=== PATIENT | female | born 1940 | race Caucasian/White ===

== ENCOUNTER 2018-01-02 15:15 | Observation (INO) ==
[2018-01-02 15:50] LABS: Basophils # 0.1 K/mm3 (0-0.2); Basophils % 0.9 % (0.1-2.0); Eosinophils # 0.4 K/mm3 (0.0-0.4); Eosinophils % 3.3 % (0.1-12.0); Hemoglobin 13.7 g/dL (12.2-16.2); Lymphocytes # 3.7 K/mm3 (0.7-4.5); Lymphocytes % 33.7 K/mm3 (10-50); Mean Corpuscular HGB Conc 33.5 g/dL (31.8-35.4); Mean Corpuscular Hemoglobin 28.1 pg (27.0-31.2); Mean Corpuscular Volume 83.7 fl (81-99); Mean Platelet Volume 7.3 fl (7.4-10.4); Monocytes # 0.7 K/mm3 (0.1-1.0); Monocytes % 5.9 % (1.7-9.3); Neutrophils # 6.1 K/mm3 (1.8-7.8); Neutrophils % 56.2 % (37.0-80.0); Platelet Count 278 K/mm3 (142-424); Red Blood Count 4.89 M/mm3 (4.20-5.40); Red Cell Distribution Width 13.1 % (11.5-17.5); White Blood Count 10.9 K/mm3 (4.8-10.8)
[2018-01-02 16:04] LABS: Anion Gap 14.7 mEq/L (5-15); Blood Urea Nitrogen 13 mg/dL (7-18); Calcium 8.5 mg/dL (8.5-10.1); Carbon Dioxide 25 mmol/L (21.0-32.0); Chloride 106 mmol/L (98-107); Glucose 107 mg/dL (74-106); Potassium 3.7 mmoL/L (3.5-5.1); Sodium 142 mmol/L (136-145)
--- NOTE | 2018-01-02 17:37 | Emergency Department Note ---
ED Disposition Clinical Impression: Chest pain Qualifiers: Chest pain type: precordial pain Qualified Code(s): R07.2 - Precordial pain Disposition: Admitted as Observation Condition on Discharge: Good - Critical Care Critical Care Time: No Attestation: On 01/02/18, the high probability of a clinically significant, sudden or life threatening deterioration of the following system(s) required my full and direct attention, intervention and personal management. The time I documented below is in addition to time spent performing reported procedures but includes the following listed in this critical care notation. Medical Decision Making - Medical Records Medical records reviewed: Yes: I reviewed the patient's medical records. - Rohan Inquiry Pt receiving controlled substance: No Vital Signs: 01/02/18 15:15 01/02/18 15:24 01/02/18 15:55 Temperature 97.7 F Temperature Source Oral Pulse Rate [Left Radial] 82 67 78 Respiratory Rate 20 Blood Pressure [Right Arm] 133/55 113/78 120/68 Blood Pressure Mean [Right Arm] 81 89 85 Blood Pressure Source [Right Arm] Manual Cuff/ Doppler Automatic Cuff Blood Pressure Position [Right Arm] Sitting Sitting 02 Sat by Pulse Oximetry 97 95 94 L Oxygen Delivery Method Room Air 01/02/18 16:39 Temperature Temperature Source Pulse Rate [Left Radial] 79 Respiratory Rate Blood Pressure [Right Arm] 97/81 Blood Pressure Mean [Right Arm] 86 Blood Pressure Source [Right Arm] Automatic Cuff Blood Pressure Position [Right Arm] Sitting 02 Sat by Pulse Oximetry 95 Oxygen Delivery Method - Lab Data Lab results reviewed: Yes: I reviewed the patient's lab results. Lab Results 01/02/18 15:40: WBC 10.9 H, RBC 4.89, Hgb 13.7, Hct 41.0, MCV 83.7, MCH 28.1, MCHC 33.5, RDW 13.1, Plt Count 278, MPV 7.3 L, Neut % (Auto) 56.2, Lymph % (Auto) 33.7, [place] % (Auto) 5.9, Eos % (Auto) 3.3, Baso % (Auto) 0.9, Neut # (Auto) 6.1, Lymph # (Auto) 3.7, [place] # (Auto) 0.7, Eos # (Auto) 0.4, Baso # (Auto) 0.1 01/02/18 15:40: Sodium 142, Potassium 3.7, Chloride 106, Carbon Dioxide 25, Anion Gap 14.7, BUN 13, Creatinine 0.98, Estimated Creat Clear 64, Estimated GFR 55 L, Est GFR ( Amer) 67, Glucose 107 H, Calcium 8.5, Troponin I < 0.02 Result diagrams: 01/02/18 15:40 01/02/18 15:40 Orders (Tests/Meds): ED MEDICATIONS Discontinued Medications Generic Name Dose Route Start Last Admin Trade Name Freq PRN Reason Stop Dose Admin Acetaminophen 1,000 mg 01/02/18 17:06 01/02/18 17:08 Tylenol 500mg Tablet PO 01/02/18 17:07 1,000 mg ONCE ONE Administration Nitroglycerin 1 gm 01/02/18 15:26 01/02/18 15:28 Nitroglycerin 1 Inch Oint Udp TD 01/02/18 15:27 1 gm ONCE ONE Administration ORDERS Category Date Time Status XR chest portable Stat Exams 01/02/18 15:21 Taken ECG Request by /Nse Stat Y 01/02/18 15:21 Stop Req - Radiology Data #1 Image(s): Chest Image Reviewed: Yes I reviewed the patient's radiology image Preliminary Findings: Normal/NAD - ECG Data Tracing #1 I reviewed this ECG and interpreted as documented below: Normal Sinus Rhythm: Yes Ischemic changes: non-specific ST-T wave changes Conduction abnormalities present: RBBB ECG compared to prior tracings: this ECG reveals significant changes Tracing #2 I reviewed this ECG and interpreted as documented below: Normal Sinus Rhythm: Yes Ischemic changes: non-specific ST-T wave changes Conduction abnormalities present: RBBB - Physician Consults Physician Consulted: yann Reason -: Admission Chest Pain HPI - General Chief Complaint: Chest Pain Stated Complaint: Chest pain Time Seen by Provider: 01/02/18 15:30 Mode of Arrival: Ambulatory Source of Information: Patient, Relative, Medical Record Limitations: No Limitations Description of Symptoms (Recalled from ER Triage Doc. by RN): Pt states that she has had chest tightness off and on for the past 2 weeks up until a couple of days it increased, she states that she feels the chest tightness is due to her worrying over her left arm pain. Some nausea and cold sweats the past couple of days. 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 to take 325 of aspirin prior to arrival to the ER - History of Present Illness HPI narrative: pt with chest tightness which has been occurring over the last 2 days with rad to lt upper ext MD complaint: chest pain indicative of cardiac Onset (ago): day(s) Duration: intermittent Activity at onset: during rest Pain location: left chest Severity: moderate Quality: tightness Pain radiation: LUE Risk Factors for CAD: Hypertension, Hypercholesterolemia, Family Hx of CAD, Diabetes Treatments prior to or on arrival for Cardiac Chest Pain: aspirin - IGLESIA Score Non-Stemi Age of patient: 65 yrs or more Number of risk factors for CAD: Presence of 3 or more Prior coronary artery stenosis(seen in coronary angiography): Less than 50% ST-Segment deviation on ECG (more than 1 min): Absent Prior aspirin intake: ASA intake in the last 7 days Severe anginal chest pain: Two or more episodes in last 24 hours Elevated cardiac markers(CK-MB or troponin): Absent Non-Stemi Risk Score: 4 - Related Data On Oral Contraceptives: No Home Medications Medication Instructions Recorded Confirmed Glimepiride 1 mg PO DAILY 01/02/18 01/02/18 Levothyroxine Sodium 112 mcg PO DAILY 01/02/18 01/02/18 [Levothyroxine 112mcg (0.112mg) Tab] Lisinopril [Lisinopril 10mg Tab] 10 mg PO DAILY 01/02/18 01/02/18 Allergies Allergy/AdvReac Type Severity Reaction Status Date / Time No Known Allergies Allergy Unknown Uncoded 04/19/17 14:34 [facility] History I have reviewed the patient's past medical history: Yes Medical History: Reports:: Diabetes Mellitus Type 2 Denies:: Diabetes Mellitus Type 1 - Social History Smoking Status: Never smoker Alcohol Intake: never - Psychiatric History Expresses thoughts of harming self/others: None Suicide Plan Description: No Plan ROS Obtained: Yes All systems reviewed & no additional complaints - Constitutional Constitutional: Denies fever(s) - Eyes Eyes: Denies change in vision - ENT Ears, Nose, Mouth, and Throat: Denies sore throat - Cardiovascular Cardiovascular: Reports chest pain - Respiratory Respiratory: No cough - Gastrointestinal Gastrointestingal: Denies: abdominal pain - Genitourinary Male Genitourinary: Reports hematuria Female Genitourinary: Denies hematuria - Musculoskeletal Musculoskeletal: Denies back pain - Integumentary/Breasts Skin/Breast: Denies rash - Neurologic Neurologic: Denies seizure-like activity Physical Exam - General General appearance: in no apparent distress - Head Head exam: normocephalic - Eye Eye exam: Present: PERRL, EOMI - ENT ENT exam: Present: mucous membranes moist - Neck Neck exam: Present: normal inspection - Respiratory Respiratory exam: Present: normal lung sounds bilaterally. Absent: respiratory distress - Cardiovascular Cardiovascular exam: Present: regular rate, systolic murmur, +S4 - Abdominal Exam Abdominal exam: Present: soft - Extremities Exam Extremities exam: Absent: calf tenderness - Neurological Exam Neurological exam: Present: alert, oriented X3, CN II-XII intact - Psychiatric Psychiatric exam: Present: normal affect - Skin Skin exam: Absent: rash
[2018-01-03 06:38] LABS: Basophils # 0.1 K/mm3 (0-0.2); Basophils % 0.7 % (0.1-2.0); Eosinophils # 0.3 K/mm3 (0.0-0.4); Hemoglobin 12.6 g/dL (12.2-16.2); Lymphocytes # 3.8 K/mm3 (0.7-4.5); Mean Corpuscular HGB Conc 36.1 g/dL (31.8-35.4); Mean Corpuscular Hemoglobin 30.8 pg (27.0-31.2); Mean Corpuscular Volume 85.2 fl (81-99); Mean Platelet Volume 7.5 fl (7.4-10.4); Monocytes # 0.5 K/mm3 (0.1-1.0); Monocytes % 5.1 % (1.7-9.3); Neutrophils # 5.2 K/mm3 (1.8-7.8); Neutrophils % 52.3 % (37.0-80.0); Platelet Count 228 K/mm3 (142-424); Red Blood Count 4.11 M/mm3 (4.20-5.40); Red Cell Distribution Width 13.3 % (11.5-17.5); White Blood Count 9.9 K/mm3 (4.8-10.8)
[2018-01-03 06:52] LABS: Anion Gap 11.8 mEq/L (5-15); Calcium 8.2 mg/dL (8.5-10.1); Potassium 3.8 mmoL/L (3.5-5.1)
--- NOTE | 2018-01-03 07:20 | History & Physical Report ---
*Admission Date: 01/02/18 *Chief complaint: Chest tightness *History of present illness: 77-year-old female with hypertension, diabetes presented to the emergency department after onset of retrosternal chest tightness with an aching pain in the left forearm, diaphoresis, mild shortness of breath. Symptoms occurred after patient had been walking outside and fed her dog. Patient tried to sit and rest but when chest tightness did not go away she contacted the on-call physician. She was instructed to come to the emergency department. Patient came to the emergency department and underwent evaluation. She admits her chest pain had decreased by the time she arrived to the emergency department. Being given nitroglycerin "may have helped". Her chest tightness did not go away until some point overnight. This morning she is chest pain-free and believes she may have just panicked. He is a non-smoker. Patient has a personal history of left-sided cervical radiculopathy but states the pain in the left forearm is different than her usual radicular pain. [facility] History I have reviewed the patient's past medical history: Yes Medical History: Reports:: Diabetes Mellitus Type 2, Hypertension Denies:: Cancer, Diabetes Mellitus Type 1, Internal Pacemaker, MRSA Other Surgeries: No: Pacemaker Amputation: No - *Social History Educational Level: Completed [employer] Smoking Status: Never smoker Alcohol Intake: never Occupational Status: retired Housing: house Household Members: family - Psychiatric History Expresses thoughts of harming self/others: None Suicide Plan Description: No Plan Review of Systems - Review of Systems Review of systems:: pertinent systems reviewed and negative unless documented below - Constitutional Denies body ache(s), Denies chills - *Cardiovascular Reports chest pain, Reports chest pain at rest - *Respiratory Reports shortness of breath, Denies change in phlegm color, Denies cough - *Gastrointestinal Denies abdominal pain, Denies belching, Denies bloating - *Neurologic Denies seizure-like activity Meds Home Medications Medication Instructions Recorded Confirmed Type Glimepiride 1 mg PO DAILY 01/02/18 01/02/18 History Levothyroxine Sodium 112 mcg PO DAILY 01/02/18 01/02/18 History [Levothyroxine 112mcg (0.112mg) Tab] Lisinopril [Lisinopril 10mg Tab] 10 mg PO DAILY 01/02/18 01/02/18 History Allergies Allergy/AdvReac Type Severity Reaction Status Date / Time No Known Allergies Allergy Unknown Uncoded 04/19/17 14:34 Exam Vital signs and Labs for Last 24 Hours: Temp Pulse Resp BP Pulse Ox 98.4 F 66 18 154/68 99 01/03/18 04:00 01/03/18 04:00 01/03/18 04:00 01/03/18 04:00 01/03/18 04:00 Laboratory Results - last 24 hr 01/02/18 15:40: WBC 10.9 H, RBC 4.89, Hgb 13.7, Hct 41.0, MCV 83.7, MCH 28.1, MCHC 33.5, RDW 13.1, Plt Count 278, MPV 7.3 L, Neut % (Auto) 56.2, Lymph % (Auto) 33.7, [place] % (Auto) 5.9, Eos % (Auto) 3.3, Baso % (Auto) 0.9, Neut # (Auto) 6.1, Lymph # (Auto) 3.7, [place] # (Auto) 0.7, Eos # (Auto) 0.4, Baso # (Auto) 0.1 01/02/18 15:40: Sodium 142, Potassium 3.7, Chloride 106, Carbon Dioxide 25, Anion Gap 14.7, BUN 13, Creatinine 0.98, Estimated Creat Clear 64, Estimated GFR 55 L, Est GFR ( Amer) 67, Glucose 107 H, Calcium 8.5, Troponin I < 0.02 01/02/18 19:11: Troponin I < 0.02 01/02/18 20:10: POC Glucose 132 H 01/02/18 21:43: Troponin I < 0.02 01/03/18 06:01: WBC 9.9, RBC 4.11 L, Hgb 12.6, Hct 35.0 L, MCV 85.2, MCH 30.8, MCHC 36.1 H, RDW 13.3, Plt Count 228, MPV 7.5, Neut % (Auto) 52.3, Lymph % (Auto) 39.0, [place] % (Auto) 5.1, Eos % (Auto) 3.0, Baso % (Auto) 0.7, Neut # (Auto) 5.2, Lymph # (Auto) 3.8, [place] # (Auto) 0.5, Eos # (Auto) 0.3, Baso # (Auto) 0.1 01/03/18 06:01: Sodium 144, Potassium 3.8, Chloride 109 H, Carbon Dioxide 27, Anion Gap 11.8, Creatinine 0.80, Estimated Creat Clear 62, Estimated GFR 70, Est GFR ( Amer) 84 D, Glucose 97, Calcium 8.2 L, Magnesium 1.8 01/03/18 06:03: POC Glucose 92 I & O for Last 24 hours: Intake & Output 12/31/17 01/01/18 01/02/18 01/03/18 11:59 11:59 11:59 11:59 Intake Total 528 / 528 Balance 528 / 528 Weight 182 lb 6 oz Narrative: She is awake and alert in no distress. HEENT exam is grossly normal. Neck is without carotid bruits. Lungs are clear to auscultation bilaterally. Heart has a regular rate and rhythm. Abdomen is soft, nontender, nondistended. Extremities have no pedal edema Assessment and Plan (1) Hypertension Current visit: Yes Status: Acute Category: Medical Code(s): I10 - Essential (primary) hypertension (2) Diabetes mellitus Current visit: Yes Status: Acute Category: Medical Code(s): E11.9 - Type 2 diabetes mellitus without complications (3) Non-smoker Current visit: Yes Status: Acute Category: Social Hx Code(s): Z78.9 - Other specified health status (4) Chest pain Current visit: Yes Status: Acute Qualifiers: Chest pain type: precordial pain Qualified Code(s): R07.2 - Precordial pain Category: Medical Code(s): R07.9 - Chest pain, unspecified - Assessment and plan all Dx Assessment and Plan for all problems:: Patient is ruled out for KS overnight with serial negative troponins. Will await cardiology evaluation of patient's new onset angina
--- NOTE | 2018-01-03 07:24 | Pharmacy Consult Notes ---
[facility] Pharmacy VTE Monitoring - Patient Demographics Admission date: 01/02/18 Report Date: 01/03/18 Time: 07:24 Allergies/Adverse Reactions: Patient Allergies No Known Allergies Allergy (Unverified 01/03/18 07:18) Height: 1.55 m Weight: 82.724 kg Patient Problems: Current Active Problems Chest pain (Acute) Hypertension (Acute) Diabetes mellitus (Acute) Non-smoker (Acute) - VTE Risk Labs: VTE Related Lab Results Hgb 12.6 g/dL (12.2-16.2) 01/03/18 06:01 Hct 35.0 % (37.0-47.0) L 01/03/18 06:01 Plt Count 228 K/mm3 (142-424) 01/03/18 06:01 BUN 13 mg/dL (7-18) 01/02/18 15:40 Creatinine 0.80 mg/dL (0.55-1.02) 01/03/18 06:01 Estimated Creat Clear 62 mL/min (0-300) 01/03/18 06:01 Was VTE Risk Assessment Performed: No VTE Score: 1 VTE Risk Level: Very Low Risk - Prophylaxis VTE Prophylaxis Ordered?: Yes Types of VTE Prophylaxis: TEDS Knee High Location of Applied Device: Bilateral Lower Extremeties - VTE Diagnosis Confirmed Treatment or plan recommended: Continue Current Treatment
--- NOTE | 2018-01-03 08:03 | Consult Report ---
History of Present Illness Consult date: 01/03/18 Requesting physician: Christian Villar Consult reason: chest pain Chief complaint: chest pain Additional Medical History:: 1. Hypertension, treated for many years 2. History of hyperthyroidism, status post iodine-131 therapy now on chronic replacement therapy 3. Diabetes mellitus, diagnosed and treated about 6 months 4. Strong family history for cancer History of present illness: 77-year-old female with hypertension, diabetes presented to the emergency department after onset of retrosternal chest tightness with an aching pain in the left forearm, diaphoresis, mild shortness of breath. Symptoms occurred after patient had been walking outside and fed her dog. Patient tried to sit and rest but when chest tightness did not go away she contacted the on-call ysician. She was instructed to come to the emergency department. Patient came to the emergency department and underwent evaluation. She admits her chest pain had decreased by the time she arrived to the emergency department. Being given nitroglycerin "may have helped". Her chest tightness did not go away until some point overnight. This morning she is chest pain-free and believes she may have just panicked. He is a non-smoker. Patient has a personal history of left- sided cervical radiculopathy but states the pain in the left forearm is different than her usual radicular pain. The above per Dr. Villar Patient does relate a recent episode of lightheadedness/dizziness while at the grocery store which resolved spontaneously after a few minutes. She states that she had not been holding onto her heart she might have fallen. Patient's EKG is sinus rhythm with right bundle branch block. She denies any history of myocardial infarction or syncope. Cardiology consulted for evaluation recommendations. [facility] History Medical History: Reports:: Diabetes Mellitus Type 2, Hypertension Denies:: Cancer, Diabetes Mellitus Type 1, Internal Pacemaker, MRSA Other Surgeries: No: Pacemaker Amputation: No - *Social History Educational Level: Completed [employer] Smoking Status: Never smoker Alcohol Intake: never Occupational Status: retired Housing: house Household Members: family - Psychiatric History Expresses thoughts of harming self/others: None Suicide Plan Description: No Plan Meds Home Medications Medication Instructions Recorded Confirmed Type Glimepiride 1 mg PO DAILY 01/02/18 01/02/18 History Levothyroxine Sodium 112 mcg PO DAILY 01/02/18 01/02/18 History [Levothyroxine 112mcg (0.112mg) Tab] Lisinopril [Lisinopril 10mg Tab] 10 mg PO DAILY 01/02/18 01/02/18 History Allergies Allergy/AdvReac Type Severity Reaction Status Date / Time No Known Allergies Allergy Unverified 01/03/18 07:18 Review of Systems - *Cardiovascular Reports chest pain, Reports shortness of breath with activity, Reports lightheadedness - *Respiratory Reports shortness of breath with activity - *Gastrointestinal Reports abdominal pain - *Genitourinary Denies blood in urine - *Musculoskeletal Reports back pain - *Neurologic Denies seizure-like activity Exam Vital signs and Labs for Last 24 Hours: Temp Pulse Resp BP Pulse Ox 98.1 F 60 18 131/59 95 01/03/18 07:59 01/03/18 07:59 01/03/18 07:59 01/03/18 07:59 01/03/18 07:59 Laboratory Results - last 24 hr 01/02/18 15:40: WBC 10.9 H, RBC 4.89, Hgb 13.7, Hct 41.0, MCV 83.7, MCH 28.1, MCHC 33.5, RDW 13.1, Plt Count 278, MPV 7.3 L, Neut % (Auto) 56.2, Lymph % (Auto) 33.7, [place] % (Auto) 5.9, Eos % (Auto) 3.3, Baso % (Auto) 0.9, Neut # (Auto) 6.1, Lymph # (Auto) 3.7, [place] # (Auto) 0.7, Eos # (Auto) 0.4, Baso # (Auto) 0.1 01/02/18 15:40: Sodium 142, Potassium 3.7, Chloride 106, Carbon Dioxide 25, Ani on Gap 14.7, BUN 13, Creatinine 0.98, Estimated Creat Clear 64, Estimated GFR 55 L, Est GFR ( Amer) 67, Glucose 107 H, Calcium 8.5, Troponin I < 0.02 01/02/18 19:11: Troponin I < 0.02 01/02/18 20:10: POC Glucose 132 H 01/02/18 21:43: Troponin I < 0.02 01/03/18 06:01: WBC 9.9, RBC 4.11 L, Hgb 12.6, Hct 35.0 L, MCV 85.2, MCH 30.8, MCHC 36.1 H, RDW 13.3, Plt Count 228, MPV 7.5, Neut % (Auto) 52.3, Lymph % (Auto) 39.0, [place] % (Auto) 5.1, Eos % (Auto) 3.0, Baso % (Auto) 0.7, Neut # (Auto) 5.2, Lymph # (Auto) 3.8, [place] # (Auto) 0.5, Eos # (Auto) 0.3, Baso # (Auto) 0.1 01/03/18 06:01: Sodium 144, Potassium 3.8, Chloride 109 H, Carbon Dioxide 27, Anion Gap 11.8, BUN 11, Creatinine 0.80, Estimated Creat Clear 62, Estimated GFR 70, Est GFR ( Amer) 84 D, Glucose 97, Calcium 8.2 L, Magnesium 1.8 01/03/18 06:03: POC Glucose 92 I & O for Last 24 hours: Intake & Output 12/31/17 01/01/18 01/02/18 01/03/18 11:59 11:59 11:59 11:59 Intake Total 528 / 528 Balance 528 / 528 Weight 182 lb 6 oz - *Routine Neck Exam Present: supple. Absent: lymphadenopathy - *Routine Respiratory Exam Present: CTA bilaterally. Absent: rales, rhonchi, wheezes - *Routine Cardiovascular Exam Present: RRR. Absent: murmur, gallop, rubs - *Routine Abdominal Exam Present: soft, normoactive bowel sounds, tenderness Comments: Reproducible tenderness in the epigastric area with palpation. - *Routine Extremities Exam Absent: cyanosis, clubbing, edema - *Routine Neurological Exam Present: alert, oriented X3, moving all extremities Assessment and Plan (1) Unstable angina pectoris Current visit: Yes Status: Acute Category: Medical Code(s): I20.0 - Unstable angina (2) Hypertension Current visit: Yes Status: Acute Category: Medical Code(s): I10 - Essential (primary) hypertension (3) Diabetes mellitus Current visit: Yes Status: Acute Category: Medical Code(s): E11.9 - Type 2 diabetes mellitus without complications (4) Non-smoker Current visit: Yes Status: Acute Category: Social Hx Code(s): Z78.9 - Other specified health status (5) Right bundle branch block (RBBB) determined by electrocardiography Current visit: Yes Status: Acute Category: Medical Code(s): I45.10 - Unspecified right bundle-branch block - Assessment and plan all Dx Assessment and Plan for all problems:: 1. Chest pain consistent with unstable angina pectoris patient with IGLESIA score of 3 (age, cardiac risk factors, recurrent chest pain). Recommend proceeding with left heart catheterization. Risks, benefits and procedure explained to the patient she agrees to proceed. 2. Echocardiogram has been ordered. 3. Further recommendations to follow pending above results. 4. Continue to monitor telemetry for arrhythmias.
--- NOTE | 2018-01-03 14:38 | Discharge Summary ---
General - General Admission date:: 01/02/18 Discharge date: 01/03/18 HPI HPI: 77-year-old female with hypertension, diabetes presented to the emergency department after onset of retrosternal chest tightness with an aching pain in the left forearm, diaphoresis, mild shortness of breath. Symptoms occurred after patient had been walking outside and fed her dog. Patient tried to sit and rest but when chest tightness did not go away she contacted the on-call physician. She was instructed to come to the emergency department. Patient came to the emergency department and underwent evaluation. She admits her chest pain had decreased by the time she arrived to the emergency department. Being given nitroglycerin "may have helped". Her chest tightness did not go away until some point overnight. This morning she is chest pain-free and believes s he may have just panicked. He is a non-smoker. Patient has a personal history of left-sided cervical radiculopathy but states the pain in the left forearm is different than her usual radicular pain. Hospital Course Hospital Course: Patient ruled out for CT with serial troponins. Cardiology was consulted and patient was taken to laboratory apparatus glass grinder over unstable angina. Left Heart Catheterization was negative for any obstructive CAD. Post procedurally there were some complications as there was difficulty getting the patient to stop bleeding from the radial artery catheter site. Ultimately late into the night patient's bleeding stopped. She was discharged home the following morning on January 04. Objective Vital signs: Temp Pulse Resp BP Pulse Ox 97.8 F 65 18 117/68 93 L 01/03/18 11:16 01/03/18 14:15 01/03/18 14:15 01/03/18 14:15 01/03/18 14:15 Results Labs on day of discharge: Labs from last 24 hours 01/03/18 01/03/18 01/03/18 11:13 06:03 06:01 WBC RBC Hgb Hct MCV MCH MCHC RDW Plt Count MPV Neut % (Auto) Lymph % (Auto) Leslie % (Auto) Eos % (Auto) Baso % (Auto) Neut # (Auto) Lymph # (Auto) Leslie # (Auto) Eos # (Auto) Baso # (Auto) Sodium 144 Potassium 3.8 Chloride 109 H Carbon Dioxide 27 Anion Gap 11.8 BUN 11 Creatinine 0.80 Estimated Creat Clear 62 Estimated GFR 70 Est GFR ( Amer) 84 D Glucose 97 POC Glucose 97 92 Calcium 8.2 L Magnesium 1.8 Troponin I 01/03/18 01/02/18 01/02/18 06:01 21:43 20:10 WBC 9.9 RBC 4.11 L Hgb 12.6 Hct 35.0 L MCV 85.2 MCH 30.8 MCHC 36.1 H RDW 13.3 Plt Count 228 MPV 7.5 Neut % (Auto) 52.3 Lymph % (Auto) 39.0 Leslie % (Auto) 5.1 Eos % (Auto) 3.0 Baso % (Auto) 0.7 Neut # (Auto) 5.2 Lymph # (Auto) 3.8 Leslie # (Auto) 0.5 Eos # (Auto) 0.3 Baso # (Auto) 0.1 Sodium Potassium Chloride Carbon Dioxide Anion Gap BUN Creatinine Estimated Creat Clear Estimated GFR Est GFR ( Amer) Glucose POC Glucose 132 H Calcium Magnesium Troponin I < 0.02 01/02/18 01/02/18 01/02/18 19:11 15:40 15:40 WBC 10.9 H RBC 4.89 Hgb 13.7 Hct 41.0 MCV 83.7 MCH 28.1 MCHC 33.5 RDW 13.1 Plt Count 278 MPV 7.3 L Neut % (Auto) 56.2 Lymph % (Auto) 33.7 Leslie % (Auto) 5.9 Eos % (Auto) 3.3 Baso % (Auto) 0.9 Neut # (Auto) 6.1 Lymph # (Auto) 3.7 Leslie # (Auto) 0.7 Eos # (Auto) 0.4 Baso # (Auto) 0.1 Sodium 142 Potassium 3.7 Chloride 106 Carbon Dioxide 25 Anion Gap 14.7 BUN 13 Creatinine 0.98 Estimated Creat Clear 64 Estimated GFR 55 L Est GFR ( Amer) 67 Glucose 107 H POC Glucose Calcium 8.5 Magnesium Troponin I < 0.02 < 0.02 DS: Diagnosis - Discharge Diagnosis (1) Unstable angina pectoris Status: Acute (2) Hypertension Status: Acute (3) Diabetes mellitus Status: Acute (4) Non-smoker Status: Acute (5) Right bundle branch block (RBBB) determined by electrocardiography Status: Acute Discharge Plan - Patient Discharge Instructions ACTIVITY: Continue current activity DIET: continue same diet - Follow up Plan Follow up with: Christian Villar MD [Primary Care Provider] - 01/13/18 1:00 pm Disposition: Home, Self-Retirement Medications: Home Medications Medication Instructions Recorded Confirmed Type Glimepiride 1 mg PO DAILY 01/02/18 01/02/18 History Levothyroxine Sodium 112 mcg PO DAILY 01/02/18 01/02/18 History [Levothyroxine 112mcg (0.112mg) Tab] Lisinopril [Lisinopril 10mg Tab] 10 mg PO DAILY 01/02/18 01/02/18 History Prescriptions/Medication Reconciliation: Continue Glimepiride 1 mg PO DAILY Lisinopril [Lisinopril 10mg Tab] 10 mg PO DAILY Levothyroxine Sodium [Levothyroxine 112mcg (0.112mg) Tab] 112 mcg PO DAILY
[2018-01-04 06:49] VITALS: BP 97/45
== END 2018-01-04 08:00 | disposition home or self-care (01) ==
LOC: 2ND 15:15 → ER 15:15 → 2ND 18:18
PROVIDERS: ADMIT Internal Medicine Adolescent Medicine; ATTEND Family Medicine

== ENCOUNTER 2018-03-21 14:00 | Outpatient (RCR) | payer MEDICARE, SELFPAY | END 2018-03-21 14:05 | disposition home or self-care (01) | LOC: PT 14:00 | PROVIDERS: PCP Family Medicine; Visit Provider Family Medicine | DX: M54.12 Radiculopathy, cervical region (principal) | CPT/HCPCS: 97010; 97012; 97014; 97033; 97035; 97110; 97163; G0283 ==

== ENCOUNTER → 2018-08-18 09:23 | Outpatient (CLI) | payer MEDICARE, SELFPAY ==
[2018-08-18 10:07] LABS: Basophils # 0.1 K/mm3 (0-0.2); Basophils % 0.9 % (0.1-2.0); Eosinophils # 0.2 K/mm3 (0.0-0.4); Eosinophils % 2.9 % (0.1-12.0); Hematocrit 42.4 % (37.0-47.0); Hemoglobin 14.5 g/dL (12.2-16.2); Lymphocytes # 2.4 K/mm3 (0.7-4.5); Lymphocytes % 35.2 % (10-50); Mean Corpuscular HGB Conc 34.2 g/dL (31.8-35.4); Mean Corpuscular Hemoglobin 29.1 pg (27.0-31.2); Mean Corpuscular Volume 85.2 fl (81-99); Mean Platelet Volume 7.2 fl (7.4-10.4); Monocytes # 0.3 K/mm3 (0.1-1.0); Monocytes % 3.9 % (1.7-9.3); Platelet Count 270 K/mm3 (142-424); Red Blood Count 4.97 M/mm3 (4.20-5.40)
== END ==
PROVIDERS: Visit Provider Otolaryngology
DX: Z01.818 Encounter for other preprocedural examination (principal); L98.9 Disorder of the skin and subcutaneous tissue, unspecified
CPT/HCPCS: 36415; 85025; 93005

== ENCOUNTER 2019-07-20 14:00 | Outpatient (RCR) | payer MEDICARE, SELFPAY ==
--- NOTE | 2019-06-29 11:51 | HMH.PTOPEV ---
PT Outpatient Evaluation Rehab PT Outpatient Evaluation Start: 06/29/19 11:33 Freq: Status: Active Protocol: Document 06/29/19 11:33 MARCELO (Rec: 06/29/19 11:50 PRASHANTANTONYERICH [id number]) Electronically Signed By Brendan Lezama, PT 06/29/19 11:33 Outpatient Therapy Subjective History Subjective History Patient is a 78 year old female presenting to outpatient PT with reports of LUE radicular symptoms starting approximately 5-6 years ago that has progressively gotten worse over the past 1 month. No recent diagnostics to report. Pt has received skilled PT services previously that has provided some significant relief. Previous diagnostics indicated severe DDD and increased thoracic kyphosis and cervical lordosis. Comorbidites include hx of HTN , hypothyroidism, anxiety and diabetes. Chief Complaint Pain,Paresthesia Symptom Type Ache,Sharp Symptoms Relieved By Heat,OTC Meds Symptoms Aggravated By Sitting,Standing,Bending/ Stooping,Physical Activity, Walking,Lifting Prior Functional Limitations Reaching,Lifting,Housework, Dressing,Desk Work/Reading, Driving,Sleeping,Standing, Sitting,Squatting,Recreation Activity,Walking,Bending/ Stooping Current Functional Limitations Reaching,Lifting,Housework, Dressing,Desk Work/Reading, Driving,Sleeping,Standing, Sitting,Squatting,Recreation Activity,Walking,Bending/ Stooping Symptom Description Intermittent Level of pain today (0-10) 5 Pain scale - at its best (0-10) 0 Pain scale - at its worst (0-10) 8 Cervical Eval Palpation Cervical Muscles R Cervical Paraspinal,L Cervical Paraspinal,R Suboccipital,L Suboccipital,R Upper Trapezius,L Upper Trapezius,R Thoracic Paraspinals,L Thoracic Paraspinals Cervical/Th
== END 2019-07-20 14:05 | disposition home or self-care (01) ==
LOC: PT 14:00
PROVIDERS: PCP Family Medicine; Visit Provider Family Medicine
DX: M54.12 Radiculopathy, cervical region (principal)
CPT/HCPCS: 97010; 97012; 97014; 97033; 97035; 97110; 97163; G0283

== ENCOUNTER → 2019-08-23 12:04 | Outpatient (CLI) | payer MEDICARE, MEDICAID, SELFPAY ==
--- NOTE | 2019-08-23 12:11 | XR_ITS ---
PROCEDURE: XR SHOULDER LT MIN 2V CLINICAL INDICATION: LT SHOULDER PAIN COMPARISON: [id number] VIEWS from 06/14/2013 FINDINGS: Mild osteoarthritic changes are present at the acromioclavicular joint. The glenohumeral joint has an unremarkable appearance. There is no lytic or blastic change evident. No significant change from 06/14/2013. IMPRESSION: Mild osteoarthritic changes acromioclavicular joint Dictated by: Vinh Roach MD 08/23/2019 12:29 Electronically signed by Vinh Roach MD in [place] 08/23/2019 12:29
--- NOTE | 2019-08-23 12:11 | XR_ITS ---
PROCEDURE: XR ELBOW LT MIN 3V CLINICAL INDICATION: LT ELBOW PAIN COMPARISON: No exams were available for comparison FINDINGS: No fracture or dislocation. No lytic or blastic change. There is normal mineralization. The joint spaces are well-preserved. No significant degenerative/arthritic changes. No erosive changes evident. Other findings:None. IMPRESSION: No acute findings. Dictated by: Vinh Roach MD 08/23/2019 12:28 Electronically signed by Vinh Roach MD in [place] 08/23/2019 12:28
== END ==
PROVIDERS: PCP Family Medicine; Visit Provider Family Medicine
DX: M25.512 Pain in left shoulder (principal); M25.522 Pain in left elbow
CPT/HCPCS: 73030; 73080

== ENCOUNTER 2019-09-11 14:00 | Outpatient (RCR) | payer MEDICARE, MEDICAID, SELFPAY ==
--- NOTE | 2019-07-31 12:20 | HMH.OTOPEV ---
OT Inpatient Evaluation Rehab OT Outpatient Eval Start: 07/31/19 11:58 Freq: Status: Active Protocol: Document 07/31/19 11:59 RMARSHALL (Rec: 07/31/19 12:20 [facility] [id number]) Electronically Signed By Geronimo Minor OT 07/31/19 11:59 Outpatient Therapy Subjective History Subjective History Pt is a 78 year old female who presents to therapy for initial evaluation to left elbow. Pt reports she has had left elbow/forearm pain on and off now for a few years . Pt does not recall a specific injury causing the pain to begin. Pt does have a palpable knot on the lateral aspect of the elbow. Pt explains her pain radiates down into the forearm often. Pt does demonstrate with decreased strenght at left elbow and significant pain/ sensitization. Pt will continue to be seen in order to address all deficits. Chief Complaint Pain,Weakness Symptom Type Ache,Throb,Sharp,Dull,Stabbing Symptoms Relieved By Nothing Symptoms Aggravated By Physical Activity,Lifting Prior Functional Limitations None Current Functional Limitations Reaching,Lifting,Housework, Driving,Sleeping,Recreation Activity Symptom Description Constant but Variable Level of pain today (0-10) 4 Pain scale - at its best (0-10) 4 Pain scale - at its worst (0-10) 8 Shoulder/Elbow Eval Shoulder Objective Measurements Elbow Objective Measurements Elbow ROM Left Elbow Extension Active Range of Motion ( 0-5 degrees) Elbow Flexion Active Range of Motion ( 135 degrees) Elbow Pronation of Forearm Range of 90 Motion (degrees) Elbow Supination of Forearm Range of 90 Motion (degrees) Elbow MMT Elbow Flexion Strength Grade 3+ Fair+ Elbow Extension Strength Grade 3+ Fair+ Wrist/Hand Eval Wrist Manual Muscle Testing Left Forearm Supination Strength Grade 3+ Fair+ Forearm Pronation Strength Grade 3+ Fair+ Returned Item Clerk/Pinch Strength Right Returned Item Clerk Strength Measurement (lbs) 30 Left Returned Item Clerk Strength Measurement (lbs) 30 OT Outpatient Assessment Impairments Problems/Impairments Palpation Tenderness,Impaired Strength,Impaired Endurance,
== END 2019-09-11 14:05 | disposition home or self-care (01) ==
LOC: OT 14:00
PROVIDERS: PCP Family Medicine; Visit Provider Family Medicine
DX: M79.602 Pain in left arm (principal); M77.12 Lateral epicondylitis, left elbow
CPT/HCPCS: 97014; 97035; 97110; 97140; 97166; G0283

== ENCOUNTER → 2019-09-20 07:45 | Outpatient (CLI) | payer MEDICARE, MEDICAID, SELFPAY ==
--- NOTE | 2019-09-20 07:45 | MR_ITS ---
PROCEDURE: MR SHOULDER LT WO CON CLINICAL INDICATION: left shoulder pain Left shoulder pain and tenderness with tingling and numbness in left arm COMPARISON: XR SHOULDER LT MIN 2V from 08/23/2019 TECHNIQUE: Routine multiplanar multi echo sequences are performed without gadolinium enhancement. FINDINGS: Osteoarthritic changes are present with hypertrophy of the acromioclavicular joint with some impingement upon the supraspinatus musculotendinous junction. There is subacromial stenosis. There is thickening of the supraspinatus and infraspinatus tendons with increased T2 signal consistent with tendinopathy/tendinosis. No obvious tear is evident. The subscapularis and teres minor tendons are intact.. There is thickening of the subscapularis tendon suggesting tendinopathy/tendinosis . No evidence of labral tear. Bicipital tendon is in place. There are mild osteoarthritic changes of the glenohumeral joint with mild superior location of the humeral head. No significant effusion IMPRESSION: Acromioclavicular arthropathy with subacromial stenosis with tendinopathy/tendinosis of the supraspinatus and infraspinatus tendons and subscapularis tendon the without definite tear with osteoarthritic changes of the glenohumeral joint and acromioclavicular joint. Dictated by: Vinh Roach MD 09/22/2019 09:47 Electronically signed by Vinh Roach MD in [place] 09/22/2019 09:47
--- NOTE | 2019-09-20 07:45 | MR_ITS ---
PROCEDURE: MR CERVICAL SPINE WO CON CLINICAL INDICATION: neck pain Neck pain radiating into the left shoulder. Neck pain tenderness tingling and numbness, pain in the left arm and fingers COMPARISON: No exams were available for comparison TECHNIQUE: Standard multiplanar multiecho sequences are performed without contrast. 3-D MIP and myelographic images are also rendered and reviewed FINDINGS: There is normal alignment. Craniocervical junction has an unremarkable appearance. C2-C3: Unremarkable. C3-C4: Unremarkable. C4-C5: Right-sided uncovertebral disc osteophyte complex/hypertrophy with right lateral recess and foraminal narrowing with mild degenerative disc disease and bulging disc with narrowing of the canal at 9 mm. C5-C6: Degenerative disc disease with mild bulging disc eccentric to the right with right lateral recess and foraminal disc osteophyte complex/hypertrophy with right lateral recess and foraminal narrowing C6-C7: Unremarkable. C7-T1: Unremarkable. IMPRESSION: 1. C4-C5: Right-sided uncovertebral disc osteophyte complex/hypertrophy with right lateral recess and foraminal narrowing with mild degenerative disc disease and bulging disc with narrowing of the canal at 9 mm. 2. C5-C6: Degenerative disc disease with mild bulging disc eccentric to the right with right lateral recess and foraminal disc osteophyte complex/hypertrophy with right lateral recess and foraminal narrowing 3. No extruded herniated disc evident. Dictated by: Vinh Roach MD 09/21/2019 12:35 Electronically signed by Vinh Roach MD in [place] 09/21/2019 12:35
== END ==
PROVIDERS: PCP Family Medicine; Visit Provider Orthopaedic Surgery
DX: M19.012 Primary osteoarthritis, left shoulder (principal); M25.512 Pain in left shoulder; M54.2 Cervicalgia; R20.2 Paresthesia of skin
CPT/HCPCS: 72141; 73221; 76376

== ENCOUNTER → 2019-10-01 10:51 | Outpatient (POV) | payer MEDICARE, MEDICAID, SELFPAY | PROVIDERS: PCP Specialist; Visit Provider Specialist | DX: M79.602 Pain in left arm (principal); R20.2 Paresthesia of skin | CPT/HCPCS: 95886; 95908 ==

== ENCOUNTER → 2019-12-28 12:27 | Outpatient (CLI) | payer MEDICARE, MEDICAID, SELFPAY ==
--- NOTE | 2019-12-28 12:38 | XR_ITS ---
PROCEDURE: XR CHEST 2V CLINICAL HISTORY: SHORTNESS OF BREATH COMPARISON: CR CXR1 CHEST-PORTABLE from 01/08/2015 CR CXR1VP XR chest portable from 01/02/2018 FINDINGS: The cardiomediastinal silhouette and pulmonary vascularity are within normal limits. The lungs are clear without infiltrates, suspicious nodules, or pleural effusions. No acute bony abnormalities. IMPRESSION: No acute findings. Dictated by: Vinh Roach MD 12/28/2019 13:10 Vinh Roach MD in [place] 12/28/2019 13:10
== END ==
PROVIDERS: PCP Family Medicine; Visit Provider Family Medicine
DX: R06.02 Shortness of breath (principal)
CPT/HCPCS: 71046

== ENCOUNTER → 2021-08-04 09:10 | Outpatient (CLI) | payer MEDICARE, MEDICAID, SELFPAY ==
--- NOTE | 2021-08-04 09:15 | XR_ITS ---
FINAL REPORT CLINICAL HISTORY: left shoulder pain FINDINGS: LEFT SHOULDER Three views demonstrate no acute fracture or dislocation. There are mild degenerative changes of the acromioclavicular and the glenohumeral joints. The visualized bony structures are well aligned. No soft tissue abnormality is seen. IMPRESSION: Mild degenerative changes. Reviewed, Interpreted and Dictated by Jose Serrano III, MD Transcribed by Ephraim Armando Authenticated by Jose Serrano III, MD on 08/04/2021 10:38:06 AM [facility]
== END ==
PROVIDERS: PCP Family Medicine; Visit Provider Orthopaedic Surgery
DX: M25.512 Pain in left shoulder (principal)
CPT/HCPCS: 73030

== ENCOUNTER 2021-09-02 14:00 | Outpatient (RCR) | payer MEDICARE, MEDICAID, SELFPAY ==
--- NOTE | 2021-08-10 13:59 | HMH.OTOPEV ---
OT Inpatient Evaluation Rehab OT Outpatient Eval Start: 08/10/21 13:42 Freq: Status: Active Protocol: Document 08/10/21 13:42 GUANAKOSMITH (Rec: 08/10/21 13:58 HARLEENKELSIE [id number]) Electronically Signed By Elissa Cottrell OT 08/10/21 13:42 Outpatient Therapy Subjective History Subjective History 80 year old female referred to skilled OP OT services for L shoulder and L elbow pain. Patient stated having pain in the L elbow and L shoulder over the past 2 years with the pain getting worst. x-ray on L shld on 08/04/21=mild degenerative changes. 08/23/19 L elbow x-ray with no findings . 09/20/19 L shld MRI: Tendinosis. On 08/04/21, Patient recieved a cortisone shot in L elbow and L shld with no relief. f/u with ortho in 4 weeks. Chief Complaint Pain,Weakness Symptom Type Ache,Throb Symptoms Relieved By Nothing Symptoms Aggravated By Physical Activity Prior Functional Limitations None Current Functional Limitations Reaching,Lifting,Driving, Recreation Activity Symptom Description Constant and Continuous Level of pain today (0-10) 2 Pain scale - at its best (0-10) 2 Pain scale - at its worst (0-10) 7 Shoulder/Elbow Eval Shoulder Objective Measurements Shoulder ROM Left Shoulder Abduction Active Range of 150 Motion (degrees) Shoulder Flexion Active Range of Motion 145 (degrees) Query Text: Shoulder External Rotation Active Range 80 of Motion (degrees) Shoulder Internal Rotation Active Range 70 of Motion (degrees) Elbow Objective Measurements Elbow ROM Left Elbow Extension Active Range of Motion ( 0 degrees) Elbow Flexion Active Range of Motion ( 145 degrees) Elbow Pronation of Forearm Range of 90 Motion (degrees) Elbow Supination of Forearm Range of 90 Motion (degrees) Elbow Special Tests Resistive Tennis Elbow (Cozen's) Test Positive Left Wrist/Hand Eval Computer Assistant/Pinch Strength Right Computer Assistant Strength Measurement (lbs) 45 Left Computer Assistant Strength Measurement (lbs) 35 OT Outpatient Assessment Impairments Problems/Impairments Impaired Range of Motion, Impaired Strength,Subjective C /O Pain Prognosis Rehab Potential
== END 2021-09-02 14:05 | disposition home or self-care (01) ==
LOC: OT 14:00
PROVIDERS: PCP Family Medicine; Visit Provider Orthopaedic Surgery
DX: M25.512 Pain in left shoulder (principal)
CPT/HCPCS: 97010; 97014; 97035; 97110; 97140; 97165; G0283

== ENCOUNTER → 2021-09-07 14:11 | Outpatient (CLI) | payer MEDICARE, SELFPAY ==
--- NOTE | 2021-09-07 14:15 | XR_ITS ---
FINAL REPORT CLINICAL HISTORY: SOB COMPARISON: 12/08/2019 FINDINGS: 2 views of the chest were obtained . The heart is normal in size. The mediastinum is within normal limits. The lungs are clear. There is no pneumothorax. Osseous structures are unremarkable. IMPRESSION: No acute cardiopulmonary process. Reviewed, Interpreted and Dictated by Jose Serrano III, MD Transcribed by Chanda Cramer Authenticated by Jose Serrano III, MD on 09/07/2021 03:44:20 PM [facility]
== END ==
PROVIDERS: PCP Family Medicine; Visit Provider Nurse Practitioner Family
DX: R06.02 Shortness of breath (principal)
CPT/HCPCS: 71046

== ENCOUNTER → 2021-10-12 12:36 | Outpatient (CLI) | payer MEDICARE, MEDICAID, SELFPAY ==
--- NOTE | 2021-10-12 13:21 | CT_ITS ---
FINAL REPORT TECHNIQUE: Axial CT images of the abdomen and pelvis were obtained before and after the administration of IV contrast. This study was performed with techniques to keep radiation doses as low as reasonably achievable (ALARA). Individualized dose reduction techniques using automated exposure control or adjustment of mA and/or kV according to the patient''s size were employed. CLINICAL HISTORY: Lwr abd pain x mos, worsened x last weeks FINDINGS: Abdomen: There is a 12 mm opacity in the medial right lung base. The heart is normal in size. There is mild fatty infiltration of the liver. The gallbladder is present. . The spleen is unremarkable. No adrenal masses present. There is a low-attenuation mass in the distal body/tail of the pancreas measuring 40 x 35 mm consistent with pancreatic neoplasm. This mass extends to the posterior wall of the stomach. The kidneys enhance normally. The aorta is normal in caliber. There is a dominic line size gastrohepatic ligament lymph node. There are several other smaller lymph nodes in this region. Precontrast images demonstrate no evidence of nephrolithiasis. Pelvis: The appendix is absent. There is soft tissue at the base of the cecum measuring 28 mm of uncertain significance. Neoplastic involvement cannot be excluded. The urinary bladder is unremarkable. There is widespread colonic diverticulosis. There is a moderate to large amount of retained stool. There is a 30 mm cystic mass in the left ovary favoring a cyst over cystic neoplasm. There has been hysterectomy. IMPRESSION: Pancreatic mass consistent with neoplasm extending to the posterior wall the stomach. Soft tissue at the base of the cecum of uncertain significance. Neoplastic involvement cannot be excluded. Borderline sized and small lymph nodes in the region of the gastrohepatic ligament. 30 mm left ovarian cystic mass favors a cyst over cystic neoplasm. Reviewed, Interpreted and Dictated by Jose Serrano III, MD Transcribed by Ephraim Armando Authenticated and [facility]
[2021-10-12 13:30] LABS: Blood Urea Nitrogen 16 mg/dl (7-17); Estimated Glomerular Filt Rate 96 ml/min (>60); GFR (African American) 116 ML/MIN (>60)
[2021-10-12 18:09] LABS: Alanine Aminotransferase 18 U/L (12-78); Albumin Level 4.2 g/dl (3.5-5.0); Alkaline Phosphatase 76 U/L (38-126); Amylase 66 U/L (30-110); Aspartate Amino Transferase 27 U/L (14-36); Bilirubin,Unconjugated 0.4 mg/dL (0.0-1.1); Lipase 208 U/L (23-300); Total Protein,Serum 6.9 g/dl (6.3-8.2)
[2021-10-12 18:12] LABS: Bilirubin,Indirect 0.1 mg/dL (0.0-0.9); Bilirubin,Total 0.1 mg/dl (0.2-1.3)
[2021-10-14 14:20] LABS: CA 19-9 3668 U/mL (0-35)
== END ==
PROVIDERS: PCP Family Medicine; Visit Provider Nurse Practitioner Family
DX: R10.9 Unspecified abdominal pain (principal); K86.89 Other specified diseases of pancreas
CPT/HCPCS: 36415; 74178; 80076; 82150; 82565; 83690; 84520; 86316; Q9967

== ENCOUNTER 2021-10-18 10:20 | Emergency (ER) | payer MEDICARE, MEDICAID, SELFPAY ==
[2021-10-18 10:21] VITALS: BP 163/77; PULSE 76; RESP 16; TEMP 37; O2SAT 98; BMI 34.0
[2021-10-18 10:26] VITALS: BP 163/77; PULSE 70; O2SAT 96
[2021-10-18 10:30] VITALS: BP 153/79; PULSE 70; O2SAT 87
--- NOTE | 2021-10-18 10:33 | XR_ITS ---
PROCEDURE INFORMATION: Exam: XR Chest Exam date and time: 10/18/2021 10:52 AM Age: 80 years old Clinical indication: Pain; Other: Mid chest to abdomen TECHNIQUE: Imaging protocol: Radiologic exam of the chest. Views: 1 view. COMPARISON: CR XR CHEST 2V 09/07/2021 2:29 PM FINDINGS: Lungs: Unremarkable. No consolidation. Pleural spaces: Unremarkable. No pleural effusion. No pneumothorax. Heart/Mediastinum: Unremarkable. No cardiomegaly. Bones/joints: Unremarkable. IMPRESSION: No acute findings.
[2021-10-18 10:48] LABS: Basophils # 0.2 K/mm3 (0-0.2); Basophils % 1.3 % (0.1-2.0); Eosinophils # 0.4 K/mm3 (0.0-0.4); Eosinophils % 3.1 % (0.1-12.0); Hematocrit 40.4 % (37.0-47.0); Hemoglobin 13.8 g/dL (12.2-16.2); Lymphocytes # 2.2 K/mm3 (0.7-4.5); Lymphocytes % 18.9 % (10-50); Mean Corpuscular HGB Conc 34.3 g/dL (31.8-35.4); Mean Corpuscular Hemoglobin 29.2 pg (27.0-31.2); Mean Platelet Volume 8.1 fl (7.4-10.4); Monocytes # 0.5 K/mm3 (0.1-1.0); Monocytes % 4.2 % (1.7-9.3); Neutrophils # 8.3 K/mm3 (1.8-7.8); Neutrophils % 72.5 % (37.0-80.0); Platelet Count 346 K/mm3 (142-424); Red Blood Count 4.75 M/mm3 (4.20-5.40); Red Cell Distribution Width 13.7 % (11.5-17.5); White Blood Count 11.4 K/mm3 (4.8-10.8)
[2021-10-18 10:49] LABS: Chloride 101 mmol/L (98-107)
[2021-10-18 10:50] LABS: Sodium 137 mmol/L (136-145)
[2021-10-18 10:52] LABS: Blood Urea Nitrogen 9 mg/dl (7-17); Creatinine Clearance Estimated 58 mL/min (50-200); Estimated Glomerular Filt Rate 119 ml/min (>60); GFR (African American) 144 ML/MIN (>60)
[2021-10-18 10:53] LABS: Alanine Aminotransferase 19 U/L (12-78); Albumin Level 4.5 g/dl (3.5-5.0); Albumin/Globulin Ratio 1.5 (1.1-1.8); Alkaline Phosphatase 71 U/L (38-126); Aspartate Amino Transferase 29 U/L (14-36); Bilirubin,Total 0.4 mg/dl (0.2-1.3); Calcium 9.5 mg/dl (8.4-10.2); Carbon Dioxide 27 mmol/L (22.0-30.0); Glucose 180 mg/dl (74-100); Lipase 299 U/L (23-300); Total Protein,Serum 7.5 g/dl (6.3-8.2)
[2021-10-18 11:00] VITALS: BP 152/78; PULSE 64; O2SAT 96
--- NOTE | 2021-10-18 11:03 | HMH.EDGENADL ---
ED Disposition Clinical Impression: Pancreatic mass Disposition: Home, Self-Care Condition on Discharge: Fair Instructions: DI for Acute Abdominal Pain Additional Instructions: Percocet as prescribed for pain. Take a stool softener daily to avoid constipation. Zofran as needed for nausea. Call Dr. Florian/Esau tomorrow for further arrangements on evaluation of pancreatic mass. Return to the emergency department if worsening pain, fever, vomiting. Additional instructions for CONTROLLED SUBSTANCES: You have been prescribed a medication that is a controlled substance. Controlled substances include pain medications known as opiates and sedative nerve medications known as benzodiazepines. Tramadol, fioricet, and gabapentin are also controlled substances. Some common opiates include: Codeine (such as Tylenol #3) Hydrocodone (Vicodin, Lortab, Lorcet, Bishop) Oxycodone (Percocet, Percodan, Oxycodone, Oxy IR) Some common benzodiazepines include: Diazepam (Valium) Lorazepam (Ativan) Alprazolam (Xanax) Clonazepam (Klonopin) Oxazepam (Serax) All of these controlled substances are highly addictive and frequently abused. Misuse can and frequently does lead to addiction as well as overdose and . Medication should be stored in a locked cabinet or other secure storage unit. Do not store the medication in a motor vehicle. Short term supplies, 3 days or less, are prescribed because of the highly addictive nature of the medication. Any of the controlled substance medication NOT taken should be disposed of properly and NOT SAVED. The recommended method of disposing of unused medications is: Place the medicines in a sealable plastic bag. If the medicine is a solid, crush it or add water to dissolve it. Add something undesirable (cat litter, coffee grounds, etc.) Dispose of sealed bag in household trash Do not flush or pour unused medicines down a sink or drain. Controlled substances should not be shared, given away or sold. Because of the addictive nature and frequent abuse, these medications are sometimes stolen. These medications should be kept in a safe place where they cannot be stolen. Do not keep them in your car or purse. Lost or stolen prescriptions for controlled substances WILL NOT BE REFILLED in this emergency department, regardless of whether a police report was filed. Prescriptions: Oxycodone HCl/Acetaminophen [Percocet 5/325mg tablet] 1 tab PO Q6HP PRN #20 tab PRN Reason: Moderate To Severe Pain Transmission Status: Received by [id number] Docusate Sodium [Colace] 100 mg PO DAILY #30 cap Transmission Status: Received by [id number] Ondansetron [Zofran 4mg ODT] 4 mg PO TIDP PRN #10 tab PRN Reason: Nausea And Vomiting Transmission Status: Received by [id number] Referrals: Mani Florian MD [Primary Care Provider] - - Critical Care Critical Care Time: No Attestation: On 10/18/21, the high probability of a clinically significant, sudden or life threatening deterioration of the following system(s) required my full and direct attention, intervention and personal management. The time I documented below is in addition to time spent performing reported procedures but includes the following listed in this critical care notation. Medical Decision Making - Medical Records Medical records reviewed: Yes: I reviewed the patient's medical records. MR Comment: Reviewed results of recent CT scan of abdomen pelvis, see below. Reviewed CA 19?9 result, elevated at 3668. - Rohan Inquiry Pt receiving controlled substance: Yes Rohan was queried for this patient: Yes Risks and benefits of using a controlled substance: were discussed with pt by me Vital Signs: 10/18/21 10:21 10/18/21 10:26 10/18/21 10:30 Temperature 98.6 F Temperature Source Oral Pulse Rate 70 70 Pulse Rate [Radial] 76 Respiratory Rate 16 Blood Pressure 163/77
--- NOTE | 2021-10-18 11:14 | ECG_ITS ---
APPROVED REPORT Exam: Resting ECG HR:66 bpm ECG Measurements Heart Rate 66 AXES NC 175 P 52 QRSd 129 QRS 37 QT 430 T 13 QTc 443 Conclusion SINUS RHYTHM POSSIBLE RIGHT VENTRICULAR CONDUCTION DELAY [RSR (QR) IN V1/V2] BORDERLINE ECG UNCONFIRMED REPORT Electronically signed by : Christian Moore MD 10/18/2021 18:41:04
[2021-10-18 11:15] LABS: Troponin I < 0.01 ng/ml (0.00-0.034)
--- NOTE | 2021-10-18 11:32 | PC.NURSE ---
paged Dr. Cifuentes for pt
--- NOTE | 2021-10-18 11:58 | PC.NURSE ---
family at bedside
[2021-10-18 12:13] VITALS: BP 133/90; PULSE 77; RESP 16; TEMP 36.6; O2SAT 96
== END 2021-10-18 12:14 | disposition home or self-care (01) ==
PROVIDERS: Emergency Provider Emergency Medicine; PCP Family Medicine
DX: K86.9 Disease of pancreas, unspecified (principal); E11.9 Type 2 diabetes mellitus without complications; I10 Essential (primary) hypertension
CPT/HCPCS: 71045; 80053; 83690; 84484; 85025; 93005; 96374; 96375; 99284; J2405

== ENCOUNTER 2021-10-19 16:00 | Observation (INO) | payer MEDICARE, MEDICAID, SELFPAY ==
[2021-10-19 16:00] VITALS: BP 121/57; PULSE 62; RESP 18; TEMP 36.8; O2SAT 99; BMI 35.2
--- NOTE | 2021-10-19 16:05 | CT_ITS ---
FINAL REPORT TECHNIQUE: Axial images through the pelvis were performed by computed tomography. Sagittal and coronal reformatted images were obtained and reviewed. This study was performed with techniques to keep radiation doses as low as reasonably achievable (ALARA). Individualized dose reduction techniques using automated exposure control or adjustment of mA and/or kV according to the patient's size were employed. CLINICAL HISTORY: trauma COMPARISON: 10/12/2021 FINDINGS: No fracture or dislocation is identified. There is sclerosis adjacent to the symphysis pubis, may represent osteitis pubis. There is sigmoid diverticulosis without evidence of diverticulitis. There is a 4.6 cm left adnexal mass, visually larger than prior worrisome for ovarian cyst versus neoplasm. IMPRESSION: Left adnexal mass worrisome for ovarian cyst versus neoplasm. Findings may represent osteitis pubis. Reviewed, Interpreted and Dictated by Jose Serrano III, MD Transcribed by Jena Wang Authenticated and [facility]
--- NOTE | 2021-10-19 16:05 | CT_ITS ---
FINAL REPORT CLINICAL HISTORY: trauma FINDINGS: Axial images of the head were obtained without contrast. Coronal reformatted images were also obtained. This study was performed with techniques to keep radiation doses as low as reasonably achievable (ALARA). Individualized dose reduction techniques using automated exposure control or adjustment of mA and/or kV according to the patient's size were employed. There is generalized age-appropriate atrophy. Periventricular low-attenuation areas are seen consistent with mild chronic ischemic changes. 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 There is no evidence of intracranial hemorrhage or mass. There is no evidence of acute infarct. There is no evidence of shift of the midline structures. No skull abnormality is seen on the bone window images. IMPRESSION: Atrophy and mild periventricular chronic ischemic changes. No acute intracranial abnormality identified. Reviewed, Interpreted and Dictated by Jose Serrano III, MD Transcribed by Jena Wang Authenticated and [facility]
--- NOTE | 2021-10-19 16:06 | PC.NURSE ---
Family member at bedside with patient
--- NOTE | 2021-10-19 16:50 | ECG_ITS ---
APPROVED REPORT Exam: Resting ECG HR:77 bpm ECG Measurements Heart Rate 77 AXES CO 212 P 62 QRSd 116 QRS 80 QT 414 T 47 QTc 446 Conclusion SINUS RHYTHM WITH FIRST DEGREE AV BLOCK SEPTAL MYOCARDIAL INFARCTION , OF INDETERMINATE AGE [40+ ms Q WAVE IN V1/V2] ABNORMAL ECG UNCONFIRMED REPORT Electronically signed by : Christian Moore MD 10/21/2021 14:44:43
[2021-10-19 17:35] LABS: Basophils # 0.2 K/mm3 (0-0.2); Basophils % 1.3 % (0.1-2.0); Eosinophils # 0.2 K/mm3 (0.0-0.4); Eosinophils % 1.5 % (0.1-12.0); Hematocrit 40.8 % (37.0-47.0); Hemoglobin 14.1 g/dL (12.2-16.2); Lymphocytes # 1.5 K/mm3 (0.7-4.5); Lymphocytes % 11.5 % (10-50); Mean Corpuscular HGB Conc 34.6 g/dL (31.8-35.4); Mean Corpuscular Hemoglobin 29.1 pg (27.0-31.2); Mean Platelet Volume 7.8 fl (7.4-10.4); Monocytes # 0.4 K/mm3 (0.1-1.0); Monocytes % 2.8 % (1.7-9.3); Neutrophils # 10.9 K/mm3 (1.8-7.8); Neutrophils % 82.9 % (37.0-80.0); Platelet Count 317 K/mm3 (142-424); Red Blood Count 4.85 M/mm3 (4.20-5.40); Red Cell Distribution Width 13.5 % (11.5-17.5); White Blood Count 13.1 K/mm3 (4.8-10.8)
[2021-10-19 17:54] LABS: Alanine Aminotransferase 19 U/L (12-78); Albumin Level 4.5 g/dl (3.5-5.0); Albumin/Globulin Ratio 1.3 (1.1-1.8); Alkaline Phosphatase 82 U/L (38-126); Anion Gap 16.7 mEq/L (5-15); Aspartate Amino Transferase 37 U/L (14-36); Bilirubin,Total 0.4 mg/dl (0.2-1.3); Blood Urea Nitrogen 13 mg/dl (7-17); Calcium 9.5 mg/dl (8.4-10.2); Carbon Dioxide 25 mmol/L (22.0-30.0); Chloride 94 mmol/L (98-107); Creatinine Clearance Estimated 58 mL/min (50-200); Estimated Glomerular Filt Rate 119 ml/min (>60); GFR (African American) 144 ML/MIN (>60); Globulin 3.4 g/dL (1.3-3.2); Glucose 168 mg/dl (74-100); Lipase 242 U/L (23-300); Potassium 3.7 mmoL/L (3.5-5.1); Sodium 132 mmol/L (136-145); Total Protein,Serum 7.9 g/dl (6.3-8.2)
[2021-10-19 18:11] LABS: Troponin I < 0.01 ng/ml (0.00-0.034)
--- NOTE | 2021-10-19 18:14 | HMH.EDFALL ---
ED Disposition Clinical Impression: Atypical syncope Disposition: Admitted As Inpatient Condition on Discharge: Fair Referrals: Mani Florian MD [Primary Care Provider] - - Critical Care Critical Care Time: No Attestation: On 10/19/21, the high probability of a clinically significant, sudden or life threatening deterioration of the following system(s) required my full and direct attention, intervention and personal management. The time I documented below is in addition to time spent performing reported procedures but includes the following listed in this critical care notation. Medical Decision Making - Medical Records Medical records reviewed: Yes: I reviewed the patient's medical records. - Rohan Inquiry Pt receiving controlled substance: No Vital Signs: 10/19/21 16:00 Temperature 98.2 F Temperature Source Oral Pulse Rate [Left Radial] 62 Respiratory Rate 18 Blood Pressure [Right Arm] 121/57 L Blood Pressure Mean [Right Arm] 78 Blood Pressure Source [Right Arm] Automatic Cuff Blood Pressure Position [Right Arm] Sitting 02 Sat by Pulse Oximetry 99 Oxygen Delivery Method Room Air - Lab Data Lab Results 10/19/21 17:20: WBC 13.1 H, RBC 4.85, Hgb 14.1, Hct 40.8, MCV 84.0, MCH 29.1, MCHC 34.6, RDW 13.5, Plt Count 317, MPV 7.8, Neut % (Auto) 82.9 H, Lymph % (Auto) 11.5, [place] % (Auto) 2.8, Eos % (Auto) 1.5, Baso % (Auto) 1.3, Neut # (Auto) 10.9 H, Lymph # (Auto) 1.5, [place] # (Auto) 0.4, Eos # (Auto) 0.2, Baso # (Auto) 0.2 10/19/21 17:20: Sodium 132 L, Potassium 3.7, Chloride 94 L, Carbon Dioxide 25, Anion Gap 16.7 H, BUN 13 D, Creatinine 0.50 L, Estimated Creat Clear 58, Estimated GFR 119, Est GFR ( Amer) 144, Glucose 168 H, Calcium 9.5, Total Bilirubin 0.4, AST 37 H D, ALT 19, Alkaline Phosphatase 82, Troponin I < 0.01, Total Protein 7.9, Albumin 4.5, Globulin 3.4 H, Albumin/Globulin Ratio 1.3, Lipase 242 10/19/21 18:14: Urine Color Yellow, Urine Appearance Clear, Urine pH 7.0, Ur Specific [place] 1.020, Urine Protein Negative, Urine Glucose (UA) Negative, Urine Ketones 2+, Urine Blood Negative, Urine Nitrate Negative, Urine Bilirubin Negative, Urine Urobilinogen 0.2, Ur Leukocyte Esterase Trace, Urine RBC Occasional, Urine WBC 3-5, Ur Squamous Epith Cells 3-5, Urine Bacteria Trace Result diagrams: 10/19/21 17:20 10/19/21 17:20 Orders (Tests/Meds): ED MEDICATIONS Discontinued Medications Generic Name Dose Route Start Last Admin Trade Name Freq PRN Reason Stop Dose Admin Sodium Chloride 1,000 mls @ 999 mls/hr 10/19/21 17:00 10/19/21 17:11 Sod Chlor 0.9% 1000ml Bag IV 10/19/21 18:00 999 mls/hr .Q1H1M FCO Administration Morphine Sulfate 4 mg 10/19/21 18:37 10/19/21 18:44 Morphine 4mg/Ml Syringe IV 10/19/21 18:38 4 mg ONCE ONE Administration Ondansetron HCl 4 mg 10/19/21 16:54 10/19/21 17:11 Ondansetron 4mg/2ml Vial IV 10/19/21 16:55 4 mg ONCE ONE Administration ORDERS Category Date Time Status Troponin I Q3H Lab 10/19/21 20:00 Ordered Troponin I Q3H Lab 10/19/21 23:00 Ordered - CT Data CT Scan: Head, Pelvis Time Received: 19:[address] Reviewed: Yes: I have reviewed the patient's CT results, I have viewed the radiologist's interpretation Findings Narrative: IMPRESSION: Left adnexal mass worrisome for ovarian cyst versus neoplasm. Findings may represent osteitis pubis. IMPRESSION: Atrophy and mild periventricular chronic ischemic changes. No acute intracranial abnormality identified. - ECG Data Tracing #1 I reviewed this ECG and interpreted as documented below: Normal ventricular rate is 77 bpm, CO interval 212 ms, normal QTC. Sinus rhythm first-degree AV block, nonspecific changes. ECG initial impression date: 10/19/21 ECG initial impression time: 16:50 - Reevaluation(s) Time: 19:16 Reevaluation #1: On reevaluation, the patient continues to feel nauseous and having some vomiting. She is very unsteady when we did
[2021-10-19 18:18] LABS: Microscopic, Urine URINE MICROSCOPIC (MICROSCOPIC)
[2021-10-19 18:26] LABS: Appearance,Urine CLEAR (Clear); Bilirubin,Urine Negative (Negative); Blood, Urine Negative (Negative); Color,Urine YELLOW (Yellow); Glucose,Urine (UA) Negative (Negative); Ketones,Urine 2+ (Negative); Leukocyte Esterase,Urine TRACE (Negative); Nitrate,Urine Negative (Negative); Protein,Urine Negative (Negative); Urobilinogen,Urine 0.2 EU/dl (0.2)
[2021-10-19 18:44] LABS: Bacteria,Urine Trace /lpf; RBC,Urine Occasional #/hpf (0-3)
[2021-10-19 19:29] VITALS: BP 139/80; PULSE 76; RESP 13; O2SAT 95
[2021-10-19 20:12] VITALS: BP 145/82; PULSE 86; RESP 19; O2SAT 98
--- NOTE | 2021-10-19 21:04 | PC.NURSE ---
Pt ambulatory to bathroom with minimal assistance. No new needs at this time.
--- NOTE | 2021-10-19 21:20 | PC.NURSE ---
pt moved to hospital bed @ this time. family member @ BS
--- NOTE | 2021-10-19 21:27 | PC.NURSE ---
Pt advised she was nauseous. Nurse notified.
--- NOTE | 2021-10-19 21:27 | PC.NURSE ---
Pt moved to hospital bed and made comfortable. Family at BS. Call light within reach. No other needs at this time.
[2021-10-19 22:00] VITALS: BP 121/66; PULSE 75; O2SAT 97
[2021-10-19 22:19] LABS: Coronavirus 19, PCR Not Detected (NotDetected); Influenza A, PCR Not Detected (NotDetected); Influenza B, PCR Not Detected (NotDetected)
[2021-10-19 22:30] VITALS: BP 122/58; PULSE 77; RESP 16; O2SAT 94
--- NOTE | 2021-10-19 23:06 | HMH.PHAINT ---
home medication list verified using list from [facility]
[2021-10-20] VITALS (8 sets, daily range): BP systolic 114–154; BP diastolic 50–78; PULSE 67–81; RESP 15–20; TEMP 36.6–37.1; O2SAT 92–98; BMI 35.2
--- NOTE | 2021-10-20 00:03 | PC.NURSE ---
Pt ambulatory to bathroom with family assistance. No new needs at this time. Call light within reach.
--- NOTE | 2021-10-20 01:05 | PC.NURSE ---
Pt sleeping well. No new needs.
--- NOTE | 2021-10-20 02:16 | PC.NURSE ---
Pt resting well
--- NOTE | 2021-10-20 05:56 | PC.NURSE ---
at bedside to collect AM labs. Daughter at bedside, both have no new complaints and resting comfortably.
--- NOTE | 2021-10-20 06:04 | PC.NURSE ---
PT REPOSITIONED FOR COMFORT. LABS OBTAINED. NO COMPLAINTS VOICED. NO ACUTE DISTRESS NOTED.
[2021-10-20 06:13] LABS: Basophils # 0.1 K/mm3 (0-0.2); Eosinophils # 0.3 K/mm3 (0.0-0.4); Eosinophils % 2.7 % (0.1-12.0); Hematocrit 36.1 % (37.0-47.0); Lymphocytes # 2.4 K/mm3 (0.7-4.5); Lymphocytes % 21.4 % (10-50); Mean Corpuscular HGB Conc 34.8 g/dL (31.8-35.4); Mean Corpuscular Hemoglobin 29.8 pg (27.0-31.2); Mean Corpuscular Volume 85.7 fl (81-99); Monocytes # 0.5 K/mm3 (0.1-1.0); Monocytes % 4.9 % (1.7-9.3); Neutrophils # 7.8 K/mm3 (1.8-7.8); Platelet Count 253 K/mm3 (142-424); Red Blood Count 4.21 M/mm3 (4.20-5.40); Red Cell Distribution Width 13.6 % (11.5-17.5); White Blood Count 11.1 K/mm3 (4.8-10.8)
[2021-10-20 06:16] LABS: Chloride 103 mmol/L (98-107); Potassium 3.6 mmoL/L (3.5-5.1); Sodium 136 mmol/L (136-145)
[2021-10-20 06:19] LABS: Anion Gap 6.6 mEq/L (5-15); Blood Urea Nitrogen 8 mg/dl (7-17); Calcium 8.5 mg/dl (8.4-10.2); Carbon Dioxide 30 mmol/L (22.0-30.0); Creatinine Clearance Estimated 58 mL/min (50-200); Estimated Glomerular Filt Rate 119 ml/min (>60); GFR (African American) 144 ML/MIN (>60); Glucose 139 mg/dl (74-100)
[2021-10-20 06:24] LABS: Hemoglobin 12.6 g/dL (12.2-16.2)
--- NOTE | 2021-10-20 07:37 | PC.NURSE ---
Rounded on patient at this time. Daughter at bedside and advised she was resting at this time time and they had no needs. Daughter provided with breakfast tray.
--- NOTE | 2021-10-20 08:19 | HMH.HP ---
*Admission Date: 10/19/21 <Jena Miner - 10/20/21 09:28> *Chief complaint: Syncope <Jena Miner - 10/20/21 08:21> *History of present illness: Ms. Gardner is an 80-year-old female with a history of hypertension, diabetes mellitus, hypothyroidism, and recently diagnosed with a pancreatic mass who presented to [facility] emergency room after a syncopal episode at home. Patient states she has been periodically dizzy and just passed out. She denies having chest pain. She is somewhat short of breath at times but blames this on her obesity. After passing out she did develop nausea and began to vomit. This persisted. She has been staying with her daughter who brought her to the emergency room for evaluation. With evaluation in the emergency room white blood cell count was elevated at 13,100 with a hemoglobin of 14.1 and hematocrit of 40.8. Sodium was low at 132 with a potassium of 3.7. She was having abdominal pain and received morphine for discomfort as well as Zofran for her nausea. She received a liter of IV fluids as well. She had a CT of the head which revealed atrophy and mild Ventricular chronic ischemic changes with no acute intracranial abnormality. She also had a CT of the pelvis which showed a left adrenal mass worrisome for ovarian cyst versus neoplasm. Also to note patient was seen in the emergency room on 10/18/2021 due to increasing abdominal discomfort. Daughter states she received morphine for pain and was discharged home with pain medication and antiemetics. Patient was also seen in the office of [facility] on 10/12/2021 with abdominal pain. Patient thought maybe she had a urinary tract infection. She had diffuse abdominal pain at that time and white blood cell count was elevated at 12,400. Due to her pain she had a CT of the abdomen and pelvis with and without oral and IV contrast which revealed the following: FINDINGS: Abdomen: There is a 12 mm opacity in the medial right lung base. The heart is normal in size. There is mild fatty infiltration of the liver. The gallbladder is present. . The spleen is unremarkable. No adrenal masses present. There is a low-attenuation mass in the distal body/tail of the pancreas measuring 40 x 35 mm consistent with pancreatic neoplasm. This mass extends to the posterior wall of the stomach. The kidneys enhance normally. The aorta is normal in caliber. There is a dominic line size gastrohepatic ligament lymph node. There are several other smaller lymph nodes in this region. Precontrast images demonstrate no evidence of nephrolithiasis. Pelvis: The appendix is absent. There is soft tissue at the base of the cecum measuring 28 mm of uncertain significance. Neoplastic involvement cannot be excluded. The urinary bladder is unremarkable. There is widespread colonic diverticulosis. There is a moderate to large amount of retained stool. There is a 30 mm cystic mass in the left ovary favoring a cyst over cystic neoplasm. There has been hysterectomy. IMPRESSION: Pancreatic mass consistent with neoplasm extending to the posterior wall the stomach. Soft tissue at the base of the cecum of uncertain significance. Neoplastic involvement cannot be excluded. Borderline sized and small lymph nodes in the region of the gastrohepatic ligament. 30 mm left ovarian cystic mass favors a cyst over cystic neoplasm. GI referral was initiated with daughter preferring [facility] for further evaluation and care. According to the daughterJulita, GI appointment was scheduled for the middle of October. Both daughter and patient are anxious to have evaluation much sooner. At the time of this exam patient continues to have some abdominal discomfort. She is also a little nauseated. They are in the emergency room awaiting a bed on the medical floor. She was able to sleep some during the night. She is receiving IV fluids. Daughter has remained with her thro
--- NOTE | 2021-10-20 08:26 | PC.NURSE ---
Dr. Fernandez at bedside
--- NOTE | 2021-10-20 09:24 | PC.NURSE ---
Called and spoke with Dr. Fernandez who gave verbal one time order for: Morphine 4mg Zofran 4mg and advised pt could have clear liquid diet at this time. Repeated and verified orders with him.
--- NOTE | 2021-10-20 09:25 | PC.NURSE ---
Called dietary for clear liquid diet tray
--- NOTE | 2021-10-20 09:28 | PC.NURSE ---
Shaista Pena RN at BS
--- NOTE | 2021-10-20 09:37 | PC.NURSE ---
Room 1 given clear liquid tray; daughter at BS; no other needs at this time
--- NOTE | 2021-10-20 10:41 | PC.NURSE ---
Pt medicated per MAR. Daughter remains at bedside. Updated them that I had spoke with House and it would probably be this afternoon when bed became available. Pt and daughter both agreeable. No other needs at this time, pt resting comfortably.
--- NOTE | 2021-10-20 11:51 | PC.NURSE ---
Kendra from 2nd floor called down to notify us that pt room 203 was clean; July notified
--- NOTE | 2021-10-20 11:55 | PC.NURSE ---
Called report to Maria Elena
--- NOTE | 2021-10-20 12:04 | PC.NURSE ---
Updated pt and daughter that pt report had been called and pt would be going to the floor shortly.
--- NOTE | 2021-10-20 12:21 | PC.NURSE ---
Pt arrived to the floor at this time
--- NOTE | 2021-10-20 14:00 | P.CONPHA_ITS ---
[facility] Pharmacy VTE Monitoring - Patient Demographics Admission date: 10/19/21 Report Date: 10/20/21 Time: 14:00 Allergies/Adverse Reactions: Patient Allergies No Known Allergies Allergy (Verified 09/01/21 16:05) Height: 1.52 m Weight: 81.76 kg Patient Problems: Current Active Problems Pancreatic mass (Acute) Atypical syncope (Acute) Abdominal pain (Acute) Diabetes mellitus (Chronic) Hypertension (Chronic) - VTE Risk Labs: VTE Related Lab Results Hgb 12.6 g/dL (12.2-16.2) D 10/20/21 06:00 Hct 36.1 % (37.0-47.0) L 10/20/21 06:00 Plt Count 253 K/mm3 (142-424) 10/20/21 06:00 BUN 8 mg/dl (7-17) D 10/20/21 06:00 Creatinine 0.50 mg/dl (0.52-1.04) L 10/20/21 06:00 Estimated Creat Clear 58 mL/min (50-200) 10/20/21 06:00 Was VTE Risk Assessment Performed: Yes VTE Score: 4 VTE Risk Level: Low Risk - Prophylaxis VTE Prophylaxis Ordered?: Yes Types of VTE Prophylaxis: TEDS Knee High, Pharmacological Location of Applied Device: Bilateral Lower Extremeties Pharmacologic Type: Enoxaparin
[2021-10-20 15:03] LABS: POC Glucose,Bedside 142 (70-110)
--- NOTE | 2021-10-20 16:25 | PC.NURSE ---
PT HAS REQUIRED PRN MEDICATION FOR PAIN AND NAUSEA SINCE COMING TO THE FLOOR. SHE HAS HAD NO OTHER C/O A&O.
--- NOTE | 2021-10-20 16:58 | PC.NURSE ---
PT AND PT DAUGHTER VOICING CONCERN TO HAVE PANCREAS BIOPSY DONE HERE, AND ANY FURTHER TREATMENT DONE HERE. THEY ARE CONCERNED ABOUT TRAVELING ELSEWHERE.
[2021-10-20 17:27] LABS: POC Glucose,Bedside 125 (70-110)
--- NOTE | 2021-10-20 19:11 | PC.NURSE ---
PTS DAUGHTER BROUGHT IN MEDS FROM HOME AT THIS TIME. LOCKED IN [facility] ROOM
[2021-10-20 20:26] LABS: POC Glucose,Bedside 136 (70-110)
[2021-10-21 04:00] VITALS: BP 140/60; PULSE 75; RESP 16; TEMP 36.9; O2SAT 95
[2021-10-21 05:47] LABS: POC Glucose,Bedside 126 (70-110)
[2021-10-21 05:50] VITALS: BMI 35.4
[2021-10-21 07:36] LABS: Basophils # 0.1 K/mm3 (0-0.2); Basophils % 0.8 % (0.1-2.0); Eosinophils # 0.2 K/mm3 (0.0-0.4); Eosinophils % 2.1 % (0.1-12.0); Hematocrit 33.6 % (37.0-47.0); Hemoglobin 11.3 g/dL (12.2-16.2); Lymphocytes # 2.1 K/mm3 (0.7-4.5); Lymphocytes % 22.5 % (10-50); Mean Corpuscular HGB Conc 33.8 g/dL (31.8-35.4); Mean Corpuscular Hemoglobin 29.8 pg (27.0-31.2); Mean Corpuscular Volume 88.1 fl (81-99); Mean Platelet Volume 8.1 fl (7.4-10.4); Monocytes # 0.5 K/mm3 (0.1-1.0); Monocytes % 5.2 % (1.7-9.3); Neutrophils # 6.4 K/mm3 (1.8-7.8); Neutrophils % 69.4 % (37.0-80.0); Platelet Count 203 K/mm3 (142-424); Red Blood Count 3.81 M/mm3 (4.20-5.40); Red Cell Distribution Width 13.6 % (11.5-17.5); White Blood Count 9.2 K/mm3 (4.8-10.8)
[2021-10-21 07:45] LABS: Chloride 103 mmol/L (98-107); Sodium 135 mmol/L (136-145)
[2021-10-21 07:46] LABS: Potassium 3.4 mmoL/L (3.5-5.1)
--- NOTE | 2021-10-21 07:47 | HMH.ACPN2 ---
<Jena Miner - Last Filed: 10/21/21 07:47> Internal Medicine - PN: Subj *Date: 10/21/21 *Time: 07:47 Interval history: Patient continues with acute pain of the abdomen radiating through to the back. She states she would just like to . She did sleep some during the night according to her daughter who state throughout. She walks to the bathroom with assistance with some urinary output. Bowels have not moved. She is somewhat short of breath. She denies chest pain. Exam Vital signs and Labs for Last 24 Hours: Temp Pulse Resp BP Pulse Ox 98.5 F 75 16 140/60 95 10/21/21 04:00 10/21/21 04:00 10/21/21 04:00 10/21/21 04:00 10/21/21 04:00 Laboratory Results - last 24 hr 10/20/21 14:39: POC Glucose 142 H 10/20/21 17:19: POC Glucose 125 H 10/20/21 20:19: POC Glucose 136 H 10/21/21 05:36: POC Glucose 126 H 10/21/21 07:11: WBC 9.2, RBC 3.81 L, Hgb 11.3 L, Hct 33.6 L, MCV 88.1, MCH 29.8, MCHC 33.8, RDW 13.6, Plt Count 203, MPV 8.1, Neut % (Auto) 69.4, Lymph % (Auto) 22.5, [place] % (Auto) 5.2, Eos % (Auto) 2.1, Baso % (Auto) 0.8, Neut # (Auto) 6.4, Lymph # (Auto) 2.1, [place] # (Auto) 0.5, Eos # (Auto) 0.2, Baso # (Auto) 0.1 I & O for Last 24 hours: Intake & Output 10/18/21 10/19/21 10/20/21 10/21/21 11:59 11:59 11:59 11:59 Intake Total 246 / 246 Balance 246 / 246 Weight 180 lb 180 lb 3.999 oz - Constitutional no acute distress (Obvious pain), mild distress - *Routine Respiratory Exam Present: crackles (Bilateral basilar) - *Routine Cardiovascular Exam Present: RRR - *Routine Abdominal Exam Present: tenderness (All upper quadrants), obese - Routine Back/Spine/Pelvis Exam Comments: Lower back hand to palpation - *Routine Neurological Exam Present: alert, oriented X3 Assessment and Plan (1) Abdominal pain Status: Acute Category: Medical Code(s): R10.9 - Unspecified abdominal pain (2) Atypical syncope Status: Acute Category: Medical Code(s): R55 - Syncope and collapse (3) Pancreatic mass Status: Acute Category: Medical Code(s): K86.89 - Other specified diseases of pancreas (4) Diabetes mellitus Status: Chronic Qualifiers: Diabetes mellitus type: type 2 Diabetes mellitus skilled nursing insulin use: without oven dumper use Diabetes mellitus complication status: without complication Qualified Code(s): E11.9 - Type 2 diabetes mellitus without complications Category: Medical Code(s): E11.9 - Type 2 diabetes mellitus without complications (5) Hypertension Status: Chronic Qualifiers: Hypertension type: essential hypertension Category: Medical Code(s): I10 - Essential (primary) hypertension (6) Back pain Status: Acute Category: Medical Code(s): M54.9 - Dorsalgia, unspecified - Assessment and plan all Dx Assessment and Plan for all problems:: Daughter has stayed with patient throughout. She wishes to have what ever can be done completed here at [facility]. She feels her mother is too weak to go home and try [facility] for diagnostic work-up. We will continue with pain management and IV fluids. A.m. lab work pending. Patient cannot remember when her bowels last moved. Dulcolax suppository today. <Lacho Fernandez - Last Filed: 10/21/21 08:22> Internal Medicine - PN: Subj *Date: 10/21/21 *Time: 08:20 Exam Vital signs and Labs for Last 24 Hours: Temp Pulse Resp BP Pulse Ox 98.1 F 68 18 127/52 L 93 L 10/21/21 07:48 10/21/21 07:48 10/21/21 07:48 10/21/21 07:48 10/21/21 07:48 Laboratory Results - last 24 hr 10/20/21 14:39: POC Glucose 142 H 10/20/21 17:19: POC Glucose 125 H 10/20/21 20:19: POC Glucose 136 H 10/21/21 05:36: POC Glucose 126 H 10/21/21 07:11: WBC 9.2, RBC 3.81 L, Hgb 11.3 L, Hct 33.6 L, MCV 88.1, MCH 29.8, MCHC 33.8, RDW 13.6, Plt Count 203, MPV 8.1, Neut % (Auto) 69.4, Lymph % (Auto) 22.5, [place] % (Auto) 5.2, Eos % (Auto) 2.1, Baso % (Auto) 0.8, Neut # (Auto) 6.4, Ly
[2021-10-21 07:48] VITALS: BP 127/52; PULSE 68; RESP 18; TEMP 36.7; O2SAT 93
[2021-10-21 07:48] LABS: Blood Urea Nitrogen 7 mg/dl (7-17); Creatinine Clearance Estimated 58 mL/min (50-200); Estimated Glomerular Filt Rate 154 ml/min (>60); GFR (African American) 186 ML/MIN (>60)
[2021-10-21 07:49] LABS: Calcium 7.9 mg/dl (8.4-10.2); Glucose 126 mg/dl (74-100)
[2021-10-21 10:03] LABS: Anion Gap 9.4 mEq/L (5-15); Carbon Dioxide 26 mmol/L (22.0-30.0)
[2021-10-21 11:09] LABS: POC Glucose,Bedside 123 (70-110)
[2021-10-21 15:01] VITALS: BP 141/60; PULSE 72; RESP 17; TEMP 36.7; O2SAT 93
[2021-10-21 16:37] LABS: POC Glucose,Bedside 97 (70-110)
--- NOTE | 2021-10-21 19:01 | PC.NURSE ---
pt has required prn pain medication today. see mar. she has used the bedpan and ambulated to the bathroom as tolerated. placed 22G iv in left hand.
[2021-10-21 19:39] VITALS: BP 130/51; PULSE 69; RESP 18; TEMP 36.4; O2SAT 92
[2021-10-21 20:00] VITALS: O2SAT 92
[2021-10-21 20:46] LABS: POC Glucose,Bedside 108 (70-110)
[2021-10-22 03:33] VITALS: BP 141/69; PULSE 77; RESP 18; TEMP 36.4; O2SAT 94
[2021-10-22 04:59] VITALS: BMI 34.5
--- NOTE | 2021-10-22 06:08 | PC.NURSE ---
pt slept well through the night and medicated x1 for pain, no changes from previous assessment, pt a+o x4; no other issues noted this shift.
[2021-10-22 07:01] LABS: POC Glucose,Bedside 109 (70-110)
[2021-10-22 08:00] VITALS: BP 138/67; PULSE 70; RESP 20; TEMP 36.7; O2SAT 92; O2SAT 93
--- NOTE | 2021-10-22 08:15 | HMH.ACPN2 ---
<Hermelinda Parsons - Last Filed: 10/22/21 08:15> Internal Medicine - PN: Subj *Date: 10/22/21 *Time: 08:15 Interval history: Patient is complaining of pain this morning. She states she was able to sleep last night because they knocked her out. Her pain has not been controlled this morning and she states she is miserable. She has not been able to eat. Exam Vital signs and Labs for Last 24 Hours: Temp Pulse Resp BP Pulse Ox 97.6 F 77 18 141/69 H 94 L 10/22/21 03:33 10/22/21 03:33 10/22/21 03:33 10/22/21 03:33 10/22/21 03:33 Laboratory Results - last 24 hr 10/21/21 07:11: Carbon Dioxide 26, Anion Gap 9.4 10/21/21 11:01: POC Glucose 123 H 10/21/21 16:22: POC Glucose 97 10/21/21 20:27: POC Glucose 108 10/22/21 06:36: POC Glucose 109 I & O for Last 24 hours: Intake & Output 10/19/21 10/20/21 10/21/21 10/22/21 11:59 11:59 11:59 11:59 Intake Total 606 / 606 1340 / 1340 Balance 606 / 606 1340 / 1340 Weight 180 lb 180 lb 3.999 oz 176 lb 1 oz - Constitutional no acute distress - *Routine Respiratory Exam Present: CTA bilaterally - *Routine Cardiovascular Exam Present: RRR - *Routine Abdominal Exam Present: soft, normoactive bowel sounds, tenderness (Epigastric) - *Routine Extremities Exam Absent: cyanosis, clubbing, edema - *Routine Skin Exam Present: warm. Absent: rash - *Routine Neurological Exam Present: alert, oriented X3 Assessment and Plan (1) Abdominal pain Status: Acute Category: Medical Code(s): R10.9 - Unspecified abdominal pain (2) Atypical syncope Status: Acute Category: Medical Code(s): R55 - Syncope and collapse (3) Pancreatic mass Status: Acute Category: Medical Code(s): K86.89 - Other specified diseases of pancreas (4) Diabetes mellitus Status: Chronic Qualifiers: Diabetes mellitus type: type 2 Diabetes mellitus nursing home insulin use: without terminal superintendent use Diabetes mellitus complication status: without complication Qualified Code(s): E11.9 - Type 2 diabetes mellitus without complications Category: Medical Code(s): E11.9 - Type 2 diabetes mellitus without complications (5) Hypertension Status: Chronic Qualifiers: Hypertension type: essential hypertension Category: Medical Code(s): I10 - Essential (primary) hypertension (6) Back pain Status: Acute Category: Medical Code(s): M54.9 - Dorsalgia, unspecified - Assessment and plan all Dx Assessment and Plan for all problems:: Family would like to get a hospice consult on the patient. This has been discussed with care management and will be ordered. <Mani Florian - Last Filed: 10/22/21 18:50> Internal Medicine - PN: Subj *Date: 10/22/21 *Time: 18:47 Exam Vital signs and Labs for Last 24 Hours: Temp Pulse Resp BP Pulse Ox 98.1 F 86 20 131/52 L 92 L 10/22/21 16:00 10/22/21 16:00 10/22/21 16:00 10/22/21 16:00 10/22/21 16:00 Laboratory Results - last 24 hr 10/21/21 20:27: POC Glucose 108 10/22/21 06:36: POC Glucose 109 10/22/21 16:43: POC Glucose 88 I & O for Last 24 hours: Intake & Output 10/20/21 10/21/21 10/22/21 10/23/21 11:59 11:59 11:59 11:59 Intake Total 606 / 606 1340 / 1340 120 / 120 Balance 606 / 606 1340 / 1340 120 / 120 Weight 180 lb 180 lb 3.999 oz 176 lb 0.978 oz Assessment and Plan (1) Abdominal pain Status: Acute Category: Medical Code(s): R10.9 - Unspecified abdominal pain (2) Atypical syncope Status: Acute Category: Medical Code(s): R55 - Syncope and collapse (3) Pancreatic mass Status: Acute Category: Medical Code(s): K86.89 - Other specified diseases of pancreas (4) Diabetes mellitus Status: Chronic Qualifiers: Diabetes mellitus type: type 2 Diabetes mellitus terminal superintendent insulin use: without terminal superintendent use Diabetes mellitus complication status: without complication Qualified Code(s): E11.9 - Type 2 diabetes mellitus without complic
--- NOTE | 2021-10-22 09:34 | PC.NURSE ---
Patient c/o of pain and has received Morphine 4mg at [address] Florian to give the Roxanol 20mg/1mL now.
[2021-10-22 10:14] VITALS: BMI 34.5
--- NOTE | 2021-10-22 10:19 | DIET.NUTRFU ---
Provider noted today patient is having increased difficulty swallowing d/t overall decline with comfort measures in place. Family to review hospice today. No further interventions are appropriate at this time.
--- NOTE | 2021-10-22 10:57 | SW/DCPLANNER ---
Addendum entered by Ira Cho 10/23/21 09:37: The plan for this patient is to discharge home with [facility]. Georgina w/ [facility] is speaking with family to arrange all home DME prior to discharge from [facility]. Addendum entered by Ira Cho 10/22/21 11:32: Guerda cox/ NICHELLE will be at [facility] to speak with patient and family at 1PM today. Original Note: Per family request: patient information has been faxed to [facility]. I did follow up w/ Georgina at [facility] and she stated that once nurse reviews information someone will call me with a time to meet with daughter at [facility]. Patient's daughter is not sure if she will need placement or will return back home with her. I will follow up with [facility], patient's family and MD once Hospice evaluates this patient. Discharge date is unknown at this time.
--- NOTE | 2021-10-22 15:27 | PC.NURSE ---
rounded on patient. patient is resting comfortably. family at bedside. went over new medications specifically roxanol with family member. they had no concerns or complaints. no questions in regard to other meds. family wishing to focus on patient comfort and rest. encouraged to ring out as needs or discomfort is noted. call light within reach
[2021-10-22 16:00] VITALS: BP 131/52; PULSE 86; RESP 20; TEMP 36.7; O2SAT 92
--- NOTE | 2021-10-22 16:50 | CARE MANAGER ---
Met with patient and daughter this morning. Hospice referral faxed and nurse came to bedside to discuss admission into hospice. Patient's daughter has requested time for making the decision. I explained that we will round with the physician in the morning and we will plan to proceed with either hospice and home or hospice and [facility].
[2021-10-22 16:51] LABS: POC Glucose,Bedside 88 (70-110)
[2021-10-22 19:46] VITALS: BP 109/53; PULSE 78; RESP 16; TEMP 37; O2SAT 92
[2021-10-22 20:00] VITALS: O2SAT 92
[2021-10-23 00:40] LABS: POC Glucose,Bedside 98 (70-110)
[2021-10-23 04:00] VITALS: BP 136/60; PULSE 80; RESP 18; TEMP 36.9; O2SAT 94
[2021-10-23 05:00] VITALS: BMI 32.5
--- NOTE | 2021-10-23 05:00 | PC.NURSE ---
pt rested well through the night, sublingual roxanol given twice with relief, no other issues noted.
[2021-10-23 08:00] VITALS: BP 114/52; PULSE 68; RESP 16; TEMP 37.1; O2SAT 91; O2SAT 92
--- NOTE | 2021-10-23 08:23 | HMH.ACPN2 ---
<Hermelinda Parsons - Last Filed: 10/23/21 08:23> Internal Medicine - PN: Subj *Date: 10/23/21 *Time: 08:23 Interval history: Patient's daughter states they spoke with hospice yesterday and had decided to go home with hospice. She has been much more comfortable since she was started on Roxanol. She has been able to rest. She still does not feel like eating. Exam Vital signs and Labs for Last 24 Hours: Temp Pulse Resp BP Pulse Ox 98.4 F 80 18 136/60 94 L 10/23/21 04:00 10/23/21 04:00 10/23/21 04:00 10/23/21 04:00 10/23/21 04:00 Laboratory Results - last 24 hr 10/22/21 16:43: POC Glucose 88 10/22/21 20:41: POC Glucose 98 I & O for Last 24 hours: Intake & Output 10/20/21 10/21/21 10/22/21 10/23/21 11:59 11:59 11:59 11:59 Intake Total 606 / 606 1340 / 1340 120 / 120 Balance 606 / 606 1340 / 1340 120 / 120 Weight 180 lb 180 lb 3.999 oz 176 lb 0.978 oz 166 lb 1.991 oz - Constitutional no acute distress - *Routine Respiratory Exam Present: CTA bilaterally - *Routine Cardiovascular Exam Present: RRR - *Routine Abdominal Exam Present: soft, normoactive bowel sounds, tenderness - *Routine Extremities Exam Absent: cyanosis, clubbing, edema - *Routine Skin Exam Present: warm. Absent: rash - *Routine Neurological Exam Sleeps through exam Assessment and Plan (1) Abdominal pain Status: Acute Category: Medical Code(s): R10.9 - Unspecified abdominal pain (2) Atypical syncope Status: Acute Category: Medical Code(s): R55 - Syncope and collapse (3) Pancreatic mass Status: Acute Category: Medical Code(s): K86.89 - Other specified diseases of pancreas (4) Diabetes mellitus Status: Chronic Qualifiers: Diabetes mellitus type: type 2 Diabetes mellitus mcfp insulin use: without mcfp use Diabetes mellitus complication status: without complication Qualified Code(s): E11.9 - Type 2 diabetes mellitus without complications Category: Medical Code(s): E11.9 - Type 2 diabetes mellitus without complications (5) Hypertension Status: Chronic Qualifiers: Hypertension type: essential hypertension Category: Medical Code(s): I10 - Essential (primary) hypertension (6) Back pain Status: Acute Category: Medical Code(s): M54.9 - Dorsalgia, unspecified - Assessment and plan all Dx Assessment and Plan for all problems:: Likely home today with hospice. Will discuss with Dr. Florian. <Mani Florian - Last Filed: 10/23/21 17:22> Internal Medicine - PN: Subj *Date: 10/23/21 *Time: 17:21 Exam Vital signs and Labs for Last 24 Hours: Temp Pulse Resp BP Pulse Ox 98.7 F 68 16 114/52 L 91 L 10/23/21 08:00 10/23/21 08:00 10/23/21 08:00 10/23/21 08:00 10/23/21 08:00 Laboratory Results - last 24 hr 10/22/21 20:41: POC Glucose 98 I & O for Last 24 hours: Intake & Output 10/21/21 10/22/21 10/23/21 10/24/21 11:59 11:59 11:59 11:59 Intake Total 606 / 606 1340 / 1340 240 / 240 360 / 360 Balance 606 / 606 1340 / 1340 240 / 240 360 / 360 Weight 180 lb 3.999 oz 176 lb 0.978 oz 166 lb 1.991 oz Assessment and Plan (1) Abdominal pain Status: Acute Category: Medical Code(s): R10.9 - Unspecified abdominal pain (2) Atypical syncope Status: Acute Category: Medical Code(s): R55 - Syncope and collapse (3) Pancreatic mass Status: Acute Category: Medical Code(s): K86.89 - Other specified diseases of pancreas (4) Diabetes mellitus Status: Chronic Qualifiers: Diabetes mellitus type: type 2 Diabetes mellitus mcfp insulin use: without mcfp use Diabetes mellitus complication status: without complication Qualified Code(s): E11.9 - Type 2 diabetes mellitus without complications Category: Medical Code(s): E11.9 - Type 2 diabetes mellitus without complications (5) Hypertension Status: Chronic Qualifiers: Hypertension type: essential hypertension
--- NOTE | 2021-10-23 10:27 | DIET.NUTRFU ---
Comfort measures are in place, refusing meals. Plans to discharge home with hospice later today.
--- NOTE | 2021-10-23 11:23 | PC.NURSE ---
Addendum entered by Ira Vásquez RN 10/23/21 12:20: ROUNDS DONE WITH CHELY CARPENTER Original Note: ROUNDED WITH PATIENT. PATIENT NOTED TO BE RESTING IN BED BUT EASY TO AROUSE. NO FAMILY AT BEDSIDE AT THIS TIME. PATIENT STATED DAUGHTER HAD LEFT TO ARRANGE FURNITURE FOR EQUIPMENT BEING BROUGHT IN. ASKED PATIENT IF SHE UNDERSTOOD PLAN. SHE VOICED THAT SHE KNEW SOME OF THE PLAN BUT HER DAUGHTER HAD BEEN TAKING CARE OF EVERYTHING AND SHE HEARS BITS AND PIECES. DID EDUCATE ON THE PLAN OF DISCHARGE WITH HOSPICE. CURRENTLY EQUIPMENT WAS BEING DELIVERED HOME. PATIENT STATES SHE HAS A COUPLE OF FAMILY MEMBERS WHO WOULD BE ALTERNATING SITTING WITH HER AT HOME. PATIENT STATED SHE HADN'T HAD A BOWEL MOVEMENT IN A FEW DAYS BUT STATED SHE DID NOT WANT THE STOOL MEDS LISTED ON HER JUN. ALSO REFUSED OTHER PO MEDICATIONS. NOTED TO HAVE JUST HAD ROXANOL. EDUCATED ON MEDICATION PATIENT STATED IT HELPED WITH HER PAIN BUT DID MAKER HER DROWSY. OFFERED TOILETING WHICH SHE REFUSED. REFUSED OFFERS FOR DRINK OR SNACK. EDUCATED TO RING OUT NEEDED. CALL LIGHT WITHIN REACH
--- NOTE | 2021-10-23 13:09 | PC.NURSE ---
PATIENT HOME MEDS TAKEN OUT OF DRAWER FOR FAMILY TO TAKE HOME.
--- NOTE | 2021-10-28 08:56 | HMH.DCSUM ---
General - General Admission date:: 10/20/21 <AnivalMani Hyman - 10/28/21 22:35> 10/20/21 <Hermelinda Parsons - 10/28/21 09:07> Discharge date: 10/23/21 <JaquelineHermelinda - 10/28/21 09:07> HPI HPI: Ms. Garnder is an 80-year-old female with a history of hypertension, diabetes mellitus, hypothyroidism, and recently diagnosed with a pancreatic mass who presented to [facility] emergency room after a syncopal episode at home. Patient states she has been periodically dizzy and just passed out. She denies having chest pain. She is somewhat short of breath at times but blames this on her obesity. After passing out she did develop nausea and began to vomit. This persisted. She has been staying with her daughter who brought her to the emergency room for evaluation. With evaluation in the emergency room white blood cell count was elevated at 13,100 with a hemoglobin of 14.1 and hematocrit of 40.8. Sodium was low at 132 with a potassium of 3.7. She was having abdominal pain and received morphine for discomfort as well as Zofran for her nausea. She received a liter of IV fluids as well. She had a CT of the head which revealed atrophy and mild Ventricular chronic ischemic changes with no acute intracranial abnormality. She also had a CT of the pelvis which showed a left adrenal mass worrisome for ovarian cyst versus neoplasm. Also to note patient was seen in the emergency room on 10/18/2021 due to increasing abdominal discomfort. Daughter states she received morphine for pain and was discharged home with pain medication and antiemetics. Patient was also seen in the office of [facility] on 10/12/2021 with abdominal pain. Patient thought maybe she had a urinary tract infection. She had diffuse abdominal pain at that time and white blood cell count was elevated at 12,400. Due to her pain she had a CT of the abdomen and pelvis with and without oral and IV contrast which revealed the following: FINDINGS: Abdomen: There is a 12 mm opacity in the medial right lung base. The heart is normal in size. There is mild fatty infiltration of the liver. The gallbladder is present. . The spleen is unremarkable. No adrenal masses present. There is a low-attenuation mass in the distal body/tail of the pancreas measuring 40 x 35 mm consistent with pancreatic neoplasm. This mass extends to the posterior wall of the stomach. The kidneys enhance normally. The aorta is normal in caliber. There is a dominic line size gastrohepatic ligament lymph node. There are several other smaller lymph nodes in this region. Precontrast images demonstrate no evidence of nephrolithiasis. Pelvis: The appendix is absent. There is soft tissue at the base of the cecum measuring 28 mm of uncertain significance. Neoplastic involvement cannot be excluded. The urinary bladder is unremarkable. There is widespread colonic diverticulosis. There is a moderate to large amount of retained stool. There is a 30 mm cystic mass in the left ovary favoring a cyst over cystic neoplasm. There has been hysterectomy. IMPRESSION: Pancreatic mass consistent with neoplasm extending to the posterior wall the stomach. Soft tissue at the base of the cecum of uncertain significance. Neoplastic involvement cannot be excluded. Borderline sized and small lymph nodes in the region of the gastrohepatic ligament. 30 mm left ovarian cystic mass favors a cyst over cystic neoplasm. GI referral was initiated with daughter preferring [facility] for further evaluation and care. According to the daughterJulita, GI appointment was scheduled for the middle of October. Both daughter and patient are anxious to have evaluation much sooner. At the time of this exam patient continues to have some abdominal discomfort. She is also a little nauseated. They are in the emergency room awaiting a bed on the medical floor. She was able to sleep some during the nigh
--- NOTE | 2021-10-29 11:15 | CARE MANAGER ---
Attempted to contact patient related to follow up from hospital discharge. Left VM messages. JAYDEN Will
== END 2021-10-23 15:15 | disposition hospice, home (50) ==
LOC: ER 19:17 → 2ND 10-20 00:24
PROVIDERS: Admitting Provider Family Medicine; Emergency Provider Emergency Medicine; PCP Family Medicine; Visit Provider Family Medicine
DX: R55 Syncope and collapse (principal); R10.9 Unspecified abdominal pain; K86.89 Other specified diseases of pancreas; I10 Essential (primary) hypertension; E11.9 Type 2 diabetes mellitus without complications; Z79.899 Other long term (current) drug therapy; Z20.822 Contact with and (suspected) exposure to COVID-19
CPT/HCPCS: G0378; 70450; 72192; 80048; 80053; 81001; 82962; 83690; 84484; 85025; 93005; 99285; C9803; J2405; U0003; U0005